=== PATIENT | female | born 1950 | race Caucasian/White ===

== ENCOUNTER → 2016-03-26 | Outpatient (CLI) | payer MEDICARE, BC ==
--- NOTE | 2016-03-26 08:59 | RAD ---
EXAM DESCRIPTION: Pelvis series. CLINICAL HISTORY: Right hip pain. COMPARISON: None. TECHNIQUE: One view was submitted for evaluation. FINDINGS: Mild degenerative change of the pubic symphysis. Mild degenerative change of the lower lumbar spine. No fracture, dislocation, or radiopaque foreign body is seen. Pelvic ring appears intact. Soft tissues are unremarkable. IMPRESSION: Symmetrical bilateral hip joint spaces with no evidence of subchondral sclerosis or osteophyte formation. Electronically signed by: Dawson Lees MD 03/26/2016 08:58
== END | disposition home or self-care (01) ==
LOC: RAD 07:54
PROVIDERS: ATTEND Orthopaedic Surgery
DX: M25.551 Pain in right hip (principal)

== ENCOUNTER → 2016-04-28 | Outpatient (CLI) | payer MEDICARE, BC | END | disposition home or self-care (01) | LOC: RESP 12:01 → LAB.O 12:01 | PROVIDERS: ATTEND Orthopaedic Surgery | DX: Z01.818 Encounter for other preprocedural examination (principal) ==

== ENCOUNTER → 2016-06-05 | Outpatient (CLI) | payer MEDICARE, BC | LOC: GMAJ 14:25 | PROVIDERS: ATTEND Family Medicine | DX: Z79.899 Other long term (current) drug therapy (principal) ==

== ENCOUNTER 2016-06-10 05:46 | Inpatient (IN) | payer MEDICARE, BC ==
--- NOTE | 2016-06-09 09:13 | HP ---
CHIEF COMPLAINT: Right knee pain. HISTORY OF PRESENT ILLNESS: Malorie is a 66-year-old female with a history of severe knee pain that has been getting progressively worse over several years. She is having feelings of the knee giving way as well. She denies any injury associated with the onset of this. She denies any radiation of pain. She has had injection. She walks with an assistive device and has used oral medication. Unfortunately, she has failed to get relief with his regimen. Because of her ongoing pain, she has requested operative intervention. After discussing the risks, benefits and alternatives to that, the patient has given informed consent. PAST SURGICAL HISTORY: 1. Tubal ligation. MEDICATIONS: 1. Amlodipine. 2. Carbamazepine. 3. Celebrex. ALLERGIES: NO KNOWN DRUG ALLERGIES. CODE STATUS: Full code. IMMUNIZATIONS: Up to date. SOCIAL HISTORY: The patient does not drink, smoke or use any illicit drugs. FAMILY HISTORY: None pertinent to today's complaint. REVIEW OF SYSTEMS: Negative except as indicated in the History of Present Illness. PHYSICAL EXAMINATION: VITAL SIGNS: Blood pressure 166/87. Pulse 70. Height 5'4". Weight 168. MENTAL STATUS: The patient is awake, alert, and is able to give a good history and participate in the physical. The patient is oriented to person, place and time. SKIN: Normal tone and turgor. HEENT: Normocephalic, atraumatic. Pupils equal, round and reactive. Mucosal membranes are moist. NECK: Normal range of motion. No thyromegaly, no lymphadenopathy. CHEST: Normal respiratory excursion. CARDIAC: Regular rate and rhythm. No murmurs, rubs or gallops. MUSCULOSKELETAL: The bilateral upper extremities show full active range of motion without pain. She has intact sensation. They are warm and well perfused. She has no crepitus with range of motion. There is no significant deformity. The left lower extremity shows good range of motion without significant pain. She has intact sensation and it is warm and well perfused. She has full extension. She has flexion to about 120 degrees. The right side shows pain and crepitus with range of motion. She has no significant varus/valgus or anterior/posterior laxity. She has mild effusion. Sensation is intact. It is warm and well perfused. She has no pain with range of motion of the hip. IMAGING: X-rays show severe arthritis with slight valgus deformity. ASSESSMENT: 1. Arthritis. PLAN: The plan at this point is for total knee arthroplasty. We have discussed the risks, benefits, and alternatives to that and the patient has given informed consent. #[id number] [facility]
[2016-06-10] MEDS ORDERED: SODIUM CHLORIDE 0.9% 250ML 250 ML ONE ×3 (05:54→19:36)
[2016-06-10] MEDS ORDERED: ceFAZolin SODIUM 1 GM VIAL ONE ×4 (05:54→19:36)
[2016-06-10] MEDS ORDERED: SODIUM CHL 0.9% 50ML MIN-BAG+ 50 ML IVPB ONE (05:54)
[2016-06-10] MEDS ORDERED: LACTATED RINGERS 1,000 ML ONE ×2 (05:54→06:22)
[2016-06-10] MEDS ORDERED: VANCOMYCIN HCL INJ 1,000 MG VIAL IVPB ONE ×4 (05:54→19:36)
[2016-06-10] MEDS ORDERED: TRANEXAMIC ACID 1,000 MG/10 ML VIAL ONE ×2 (05:55)
[2016-06-10] MEDS ORDERED: SODIUM CHLORIDE 0.9% 100ML 0 ML IVPB ONE (05:56)
[2016-06-10] MEDS ORDERED: SODIUM CHL 0.9% 100ML MINI-BAG 100 ML IVPB ONE (05:57)
[2016-06-10] MEDS ORDERED: MORPHINE SULF *EPIDURAL* 1 MG/ML VIAL ONE (06:22)
[2016-06-10] MEDS ORDERED: BUPIVACAINE 0.25% W/EPI 50 ML VIAL INJ ONE (06:29)
[2016-06-10] MEDS ORDERED: PROMETHAZINE HCL INJ 12.5 MG in SODIUM CHLORIDE 0.9% 50ML 50 ML IVPB PRN (07:03)
[2016-06-10] MEDS ORDERED: ACETAMINOPHEN 325 MG TAB PO PRN (07:03)
[2016-06-10] MEDS ORDERED: TRANEXAMIC ACID INJ 1,000 MG in SODIUM CHLORIDE 0.9% 100ML 100 ML IVPB ONE (07:03)
[2016-06-10] MEDS ORDERED: ALUMINUM & MAGNESIUM HYDROXIDE 30 ML UD PO PRN (07:03)
[2016-06-10] MEDS ORDERED: TEMAZEPAM 15 MG CAP PO PRN (07:03)
[2016-06-10] MEDS ORDERED: BISACODYL SUPPOSITORY 10 MG PR PRN (07:03)
[2016-06-10] MEDS ORDERED: NALOXONE HCL INJ 0.4 MG/ML VIAL IV PRN (07:03)
[2016-06-10] MEDS ORDERED: ACETAMINOPHEN 500 MG TAB PO PRN (07:03)
[2016-06-10] MEDS ORDERED: ONDANSETRON INJ 4 MG/2 ML VIAL IV PRN (07:03)
[2016-06-10] MEDS ORDERED: MORPHINE SULFATE INJ 10 MG/ML VIAL IM PRN (07:03)
[2016-06-10] MEDS ORDERED: PROMETHAZINE HCL INJ 25 MG in SODIUM CHLORIDE 0.9% 50ML 50 ML IVPB PRN (07:03)
[2016-06-10] MEDS ORDERED: MAGNESIUM HYDROXIDE 30 ML UD PO PRN (07:03)
[2016-06-10] MEDS ORDERED: ZOLPIDEM TARTRATE 5 MG TAB PO PRN (07:03)
[2016-06-10] MEDS ORDERED: SODIUM CHLORIDE 0.9% (FLUSH) 10 ML SYG IV PRN (07:03)
[2016-06-10] MEDS ORDERED: BENZOCAINE-MENTH LOZ (CEPACOL) 1 EA LOZ MT PRN (07:03)
[2016-06-10] MEDS ORDERED: CYCLOBENZAPRINE HCL 10 MG TAB PO PRN (07:03)
[2016-06-10] MEDS ORDERED: MORPHINE SULFATE INJ 10 MG/ML VIAL IV PRN (07:03)
[2016-06-10] MEDS ORDERED: MORPHINE PCA 1 MG/ML 100ML 1 BAG in PREMIX BAG 1 BAG IVPB SCH (07:30)
[2016-06-10] MEDS: IV SET AND CAP CHANGE INJ INJ SCH (07:35)
[2016-06-10] MEDS ORDERED: MORPHINE PCA 1 MG/ML 100 ML BAG IVPB ONE (09:05)
[2016-06-10] MEDS ORDERED: PROPOFOL 200 MG/20 ML VIAL IV ONE (12:00)
[2016-06-10] MEDS ORDERED: LIDOCAINE 1% 10 ML VIAL INJ ONE (12:00)
--- NOTE | 2016-06-10 15:01 | PN ---
DATE: 06/10/16 SUBJECTIVE: She is doing well. She has no pain at this point. OBJECTIVE: Afebrile. Vital signs stable. Dressing is clean, dry and intact. ASSESSMENT: Status post total knee arthroplasty. PLAN: The plan at this point is to continue with her CPM and begin weight- bearing as tolerated tomorrow. #[id number] [facility]
--- NOTE | 2016-06-10 15:04 | OP ---
DATE OF PROCEDURE: 06/10/16 PREOPERATIVE DIAGNOSIS: 1. Right knee arthritis. POSTOPERATIVE DIAGNOSIS: 1. Right knee arthritis. PROCEDURE: 1. Right total knee arthroplasty. SURGEON: Juan Luis Kaba MD. MEDIATION COMMISSIONER: Zane Harper CST, SA-C. ANESTHESIA: General. COMPLICATIONS: None. FINDINGS: Severe arthritis with valgus deformity. INDICATION: Ms. Butts has a history of pain that has been refractory to conservative measures. Because of the refractory nature of the pain, she has requested operative intervention. Because of the severity of her arthritis, the only operative intervention she is a candidate for is total knee arthroplasty. After discussing the risks, benefits and alternatives to that, the patient has given informed consent for total knee arthroplasty. PROCEDURE: The patient was brought to the Operating Room and placed in supine position. General anesthesia was induced and the patient's leg was sterilely prepped and draped. Following prepping and draping, the distal femur was exposed and using an intramedullary guide, the distal femoral cut was made. The appropriate sized cutting block was measured, pinned into place, and the anterior, posterior, and chamfer cuts were made. The ACL was transected and the tibia was subluxed. Both the medial and lateral menisci were removed. An intramedullary guide was used to make the proximal tibial cut. The appropriate sized base plate was placed and a trial polyethylene was placed. The trial femur was placed, the knee was reduced, and the knee was taken through a range of motion. The knee was stable in anterior, posterior, varus and valgus stress. The patella tracked anatomically without evidence of subluxation or dislocation. After trialing, the trial components were removed and the bony surfaces were thoroughly irrigated with saline. Following irrigation, the surfaces were dried and the final components were cemented into place. The excess cement was removed and the remaining cement was allowed to cure. The knee was again taken through a range of motion to confirm stability. The wound was then irrigated with saline and closure was performed using PDS to approximate the arthrotomy followed by closure of the subcutaneous tissues with a combination of running and interrupted Monocryl sutures. Sterile dressing was placed. The patient was awoken from anesthesia and taken to Recovery. POSTOPERATIVE INSTRUCTIONS: The patient will be weight-bearing as tolerated on postoperative day 1. #[id number] [facility]
--- NOTE | 2016-06-10 15:34 | CONS ---
DATE: 06-10-16 HISTORY OF PRESENT ILLNESS: This 66 year-old white female was admitted to the hospital for elective total right knee replacement surgery earlier this morning. She is now immediately postoperatively examined and is being set up and prepared for eventual rehabilitation as she recuperates postsurgical to the point where she is able to safely return home. The patient is currently fairly stable after having Astramorph for pain relief as well as also on a morphine LINOLEUM FLOOR LAYER pump. She is alert and awake and communicative. She has had a long history of at least 2 years of worsening knee pain and has failed outpatient therapy and is requiring surgical intervention to assist with symptom control. PAST MEDICAL HISTORY: 1 Hypertension. 2. Arthritic pain in her knees, especially the right. 3. Seizure disorder. 4. She has had decreasing memory recently also. PAST SURGICAL HISTORY: 1. Right total knee arthroplasty performed earlier today. 2. Appendectomy as a child. 3. Bilateral tubal ligation in the past. 4. Removal of a temporal lobe cyst a few years ago. She has had seizures even before this neurosurgical procedure had been performed. CURRENT MEDICATIONS: Please see nurses list for a list of verified home medications. ALLERGIES: NONE KNOWN. FAMILY HISTORY: Positive for congestive heart failure, diabetes, prostate as well as breast cancer in various members. 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 She has never smoked or drank alcoholic beverages. REVIEW OF SYSTEMS: GENERAL: No significant weight change, fever or chills. HEENT: No significant vision or hearing difficulties. LUNGS: Mild shortness of breath upon exertion. No significant sputum production or hemoptysis. CARDIOVASCULAR: No chest pains or palpitations evident. ABDOMEN: No nausea, vomiting, diarrhea or blood in the stools. : No burning upon urination. EXTREMITIES: Worsening pain, especially in the right knee for the last 2 years. A lot of this dates back to some injuries that she has had in the past with worsening pain and failing to respond to outpatient therapy. NEUROLOGICAL: She has had recurring seizures, most recently 2 to 3 days before. They are described as petit mal or absence seizures, probably originating close to the temporal region where her cystic lesion had been approached neurosurgically. She is on a couple of medications for this and is followed by Dr. Dumont, neurologist. PHYSICAL EXAMINATION: VITAL SIGNS: Afebrile, pulse 71, blood pressure 146/72, pulse oximetry is 98% on room air. Weight is 76.2 kilos. GENERAL: Alert, able to communicate. Her memory is somewhat poor on some subjects and the is present to assist in filling in those blanks. HEENT: She does have some dry skin with some slight erythema noted around the face, especially the cheeks which the states seems to be new and maybe a transient reaction to some of the medications received earlier at the time of surgery. NECK: Supple, no adenopathy. CHEST: Lungs are clear with no significant rhonchi. HEART: Tones are regular without any significant gallops. ABDOMEN: Soft with no organomegaly, masses or tenderness. EXTREMITIES: Right knee is in a variable contraction range of motion machine up to 90 degrees and tolerating it fairly well. No significant pedal edema. NEUROLOGIC: The patient is having some decreased memory on some occasions, otherwise history of seizures, most recently 2 to3 days ago. LABORATORY: White count is 5,600, hemoglobin 13.1, neutrophils 71%. Chemistry shows sodium 136, potassium 3.6, BUN 19, creatinine 0.63, glucose 110. MRSA surveillance nasal culture performed 06/09/16 is negative at 24 hours. X-RAYS: Postoperative x-ray shows good placement of the prosthesis in the right knee. ADMITTING DIAGNOSIS: 1. Immediate postoperative day #0 total right knee arthroplasty for advanced osteoarthritis, having failed outpatient therapy and requiring surgical intervention to assist with symptom control. 2. Hypertension. 3. History of chronic seizure disorder probably petit mal in nature. 4. 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 5. Decreased memory, possibly related to the underlying neurological condition versus early dementia state. 6. Recent history of constipation. PLAN: The patient is admitted to the hospital from surgery for rehabilitation to reach her maximum potential so she will be able to return home safely. This rehabilitation will be under the direction of the orthopedist and physical therapy departments. We will observe her closely for her blood pressure control. Continue with previously used seizure medications. Seizure precautions at the bedside. Continue to observe closely and will have close followup with Dr. Flood when clinically stable to the point of being able to be discharged home postoperatively. [facility][id number] [facility]
[2016-06-10] MEDS ORDERED: SODIUM CHLORIDE 0.9% 100ML 100 ML IVPB ONE ×2 (15:38→19:36)
--- NOTE | 2016-06-10 15:49 | RAD ---
EXAM DESCRIPTION: Knee,Right 2 or More Views CLINICAL HISTORY: TKA COMPARISON: November 01, 2009 IMPRESSION: 2 views of the right knee show recent postsurgical changes from total knee arthroplasty with cement fixation of the tibial and femoral components. Soft tissue emphysema from recent surgery is seen. No complicating features are identified. Electronically signed by: Mateus Vizcaino MD 06/10/2016 3:18 PM CDT
[2016-06-10] MEDS: DEX 5% W/NACL 0.45% 1000ML 1,000 ML IVS PRN (15:53)
[2016-06-10] MEDS ORDERED: ceFAZolin SODIUM 1 GM in SODIUM CHL 0.9% 50ML MIN-BAG+ 50 ML IVPB SCH (16:00)
[2016-06-10] MEDS: ceFAZolin SODIUM 2 GM in SODIUM CHLORIDE 0.9% 100ML 100 ML IVPB SCH (16:09)
[2016-06-10] MEDS: VANCOMYCIN HCL INJ 1,000 MG in SODIUM CHLORIDE 0.9% 250ML 250 ML IVPB SCH (17:55)
[2016-06-10] MEDS: MAGNESIUM OXIDE 400 MG TAB PO SCH (19:08)
[2016-06-10] MEDS ORDERED: OXcarbazepine 300 MG TAB PO ONE (19:35)
[2016-06-10] MEDS ORDERED: DOCUSATE CALCIUM 240 MG CAP ONE (19:36)
[2016-06-10] MEDS ORDERED: ENOXAPARIN SODIUM 30 MG/0.3 ML SYG SUBCU ONE (19:36)
[2016-06-10] MEDS ORDERED: levETIRAcetam 250 MG TAB ONE (19:36)
[2016-06-10] MEDS: levETIRAcetam 250 MG TAB PO SCH (20:37)
[2016-06-10] MEDS: DOCUSATE CALCIUM 240 MG CAP PO SCH (20:37)
[2016-06-10] MEDS: OXcarbazepine 300 MG TAB PO SCH (20:37)
[2016-06-10] MEDS: AZILSARTAN MEDOXOMIL 80 MG PO SCH (20:38)
[2016-06-10] MEDS: ENOXAPARIN SODIUM 30 MG/0.3 ML SYG SUBCU SCH (21:51)
[2016-06-11] MEDS: ceFAZolin SODIUM 2 GM in SODIUM CHLORIDE 0.9% 100ML 100 ML IVPB SCH ×2 (00:09→08:57)
[2016-06-11] MEDS: VANCOMYCIN HCL INJ 1,000 MG in SODIUM CHLORIDE 0.9% 250ML 250 ML IVPB SCH (06:26)
[2016-06-11] MEDS ORDERED: ceFAZolin SODIUM 1 GM VIAL ONE ×2 (07:58→09:00)
[2016-06-11] MEDS ORDERED: SODIUM CHLORIDE 0.9% 100ML 100 ML IVPB ONE ×2 (07:58→09:00)
[2016-06-11] MEDS: OXcarbazepine 300 MG TAB PO SCH ×2 (09:45→20:33)
[2016-06-11] MEDS: levETIRAcetam 250 MG TAB PO SCH ×2 (09:45→20:33)
[2016-06-11] MEDS: ENOXAPARIN SODIUM 30 MG/0.3 ML SYG SUBCU SCH ×2 (09:45→21:00)
[2016-06-11] MEDS: MAGNESIUM OXIDE 400 MG TAB PO SCH (09:49)
[2016-06-11] MEDS ORDERED: METOPROLOL SUCCINATE XL 50 MG TAB ONE (10:41)
[2016-06-11] MEDS: amLODIPine BESYLATE 5 MG TAB PO SCH (12:16)
[2016-06-11] MEDS ORDERED: ALUM & MAG HYDROX-SIMETHICONE 30 ML UD PO PRN (13:06)
--- NOTE | 2016-06-11 16:18 | PN ---
DATE: 06/11/16 SUPERVISING PHYSICIAN: Jean-Paul Tan M.D. SUBJECTIVE: The patient is sitting in the bedside chair. She says her pain is well controlled. She has had no nausea or vomiting. She did run a low-grade fever with a T max of 100.2. OBJECTIVE: VITAL SIGNS: T max 100.2, pulse 88, blood pressure 178/81, respirations 18, satting 94% on room air. I's and O's show a negative balance of 1115 with 810 in, 1925 out. GENERAL: The patient appears to be in no distress. She is comfortable and alert. CHEST: Lungs are clear to auscultation bilaterally. HEART: Regular rate and rhythm. ABDOMEN: Soft, non- tender. Positive bowel sounds. EXTREMITIES: Right knee has a surgical dressing in place. She is sitting in the bedside chair. There is no edema noted. Distally pulses are strong. Capillary refill is brisk. NEUROLOGIC: The patient is alert and oriented times three. LABORATORY: Postoperative H&H shows 11.4 and 33.4. ASSESSMENT: 1. Postoperative day 1 total right knee arthroplasty for advanced osteoarthritis having failed outpatient treatment therapy and requiring surgical intervention to assist with symptom control. 2. Hypertension. 3. History of chronic seizure disorder probably petit mal in nature. 4. History of benign temporal lobe cyst requiring drainage a number of years previously by neurosurgical services. 5. Decreased memory possibly related to underlying neurological condition versus early dementia state. 6. Recent history of constipation. PLAN: Will continue to follow the patient as she progresses through her physical therapy and rehabilitation efforts. Will anticipate discharge at the discretion of Physical Therapy as she meets her goals. Until then, continue to monitor the patient closely and treat appropriately. #[id number] [facility]
[2016-06-11] MEDS: DEX 5% W/NACL 0.45% 1000ML 1,000 ML IVS PRN (20:23)
[2016-06-11] MEDS: AZILSARTAN MEDOXOMIL 80 MG PO SCH (20:33)
[2016-06-11] MEDS: DOCUSATE CALCIUM 240 MG CAP PO SCH (20:33)
[2016-06-12] MEDS: HYDROcodone 5MG/APAP 325MG 1 EA TAB PO PRN ×3 (01:51→13:45)
--- NOTE | 2016-06-12 07:59 | PN ---
DATE: 06/11/16 SUBJECTIVE: She is doing well today. Her pain is well controlled. OBJECTIVE: Afebrile. Vital signs stable. Dressing is clean, dry and intact. ASSESSMENT: Status post total knee arthroplasty. PLAN: The plan at this point is to continue with her CPM and weight-bearing as tolerated. #[id number] [facility]
[2016-06-12] MEDS: levETIRAcetam 250 MG TAB PO SCH ×2 (09:50→20:42)
[2016-06-12] MEDS: MAGNESIUM OXIDE 400 MG TAB PO SCH (09:50)
[2016-06-12] MEDS: SODIUM CHLORIDE 0.9% (FLUSH) 10 ML SYG IV SCH ×2 (09:51→20:41)
[2016-06-12] MEDS: ENOXAPARIN SODIUM 30 MG/0.3 ML SYG SUBCU SCH ×2 (09:51→21:26)
[2016-06-12] MEDS: OXcarbazepine 300 MG TAB PO SCH ×2 (09:51→20:42)
[2016-06-12] MEDS: amLODIPine BESYLATE 5 MG TAB PO SCH (09:51)
--- NOTE | 2016-06-12 09:55 | PCM.CORE ---
Physician DVT/VTE - Prophylaxis Currently: Patient already on anticoagulation therapy - Nurse DVT Assessment & Total Each Risk Factor Represents 2 Points: Age 60-74, Major Surgery >45 minutes Each Risk Factor is 1 Point: Obesity (BMI >25) DVT Assessment Score: 5 - 5 or more Very High Risk Treatments: Early Ambulation *, Sequential Compression Device Pharmacological: Enoxaparin 30mg SQ BID
--- NOTE | 2016-06-12 19:16 | PN ---
DATE: 06/12/16 SUPERVISING PHYSICIAN: Jean-Paul Tan M.D. SUBJECTIVE: The patient is resting in bed currently using a CPM. She says her pain has been fairly well controlled. She did run a significant temperature last night with T max of 101.8. She again is encouraged to continue with deep breathing exercises to prevent any atelectasis and complications. She has had no nausea, vomiting or diarrhea. She reports her appetite is improving. OBJECTIVE: VITAL SIGNS: T max 101.8, pulse 75, blood pressure 165/67, respirations 18, O2 sat 98% on nasal cannula at rest. I's and O's show a positive balance of 3781 with 5206 in, 1425 out. Weight 76.2 kg. GENERAL: The patient appears to be comfortable utilizing CPM. She is alert. CHEST: Lungs are clear to auscultation but diminished towards the bases. HEART: Regular rate and rhythm. ABDOMEN: Soft, non-tender. Positive bowel sounds. EXTREMITIES: No clubbing, cyanosis or edema. Surgical dressing is in place overlying the right knee with no notable erythema. Minimal swelling. Pulses distally are strong with capillary refill brisk. NEUROLOGIC: She is alert and oriented times three. LABORATORY AND RADIOLOGY: There are no new findings to report. ASSESSMENT: 1. Postoperative day 2 total right knee arthroplasty for advanced osteoarthritis having failed outpatient treatment therapy requiring surgical intervention to assist with symptom control. 2. Low-grade fever likely secondary to pulmonary hygiene and possible early atelectasis with the patient being encouraged to utilize incentive spirometry and deep breathing exercises with no other signs of obvious infection. 3. Hypertension, stable. 4. History of chronic seizure disorder probably petit mal in nature. 5. History of benign temporal lobe cyst requiring drainage a number of years previously by neurosurgical services. 6. Decreased memory possibly related to underlying neurologic condition versus early dementia state. 7. Recent history of constipation. PLAN: Will again continue to follow the patient as she progresses through her physical therapy rehabilitation under the direction of orthopedic services, Dr. Kaba and Physical Therapy. I have again encouraged the patient to continue with breathing exercises and utilize her incentive spirometry, and reeducated in regards to atelectasis and complications, and possible origin of the ongoing fevers at night. She is also encouraged to flex and move her lower extremities while in bed to help with circulation. Will continue to monitor the patient and anticipate discharge at the discretion of Physical Therapy once the patient has met her set goals. Until then, will monitor and treat appropriately. #[id number] [facility]
[2016-06-12] MEDS: AZILSARTAN MEDOXOMIL 80 MG PO SCH (20:42)
[2016-06-12] MEDS: DOCUSATE CALCIUM 240 MG CAP PO SCH (20:42)
[2016-06-12] MEDS: CETIRIZINE HCL 10 MG TAB PO SCH (20:42)
[2016-06-12] MEDS ORDERED: CETIRIZINE HCL 10 MG TAB PO SCH (21:00)
[2016-06-12] MEDS ORDERED: NON-FORMULARY MEDICATION 1 EA MIS (Levocetirizine Dihydrochloride [Xyzal] 5 MG) PO SCH (21:00)
[2016-06-12] MEDS ORDERED: IBUPROFEN 400 MG TAB PO PRN (21:26)
[2016-06-13] MEDS: HYDROcodone 5MG/APAP 325MG 1 EA TAB PO PRN ×3 (07:15→21:35)
--- NOTE | 2016-06-13 08:03 | PN ---
DATE: 06/12/16 SUBJECTIVE: Ms. Butts is doing well today. Her pain is well controlled. OBJECTIVE: She us afebrile. Vital signs stable. Wound is clean, there are no signs or symptoms of infection. . ASSESSMENT: Status post total knee arthroplasty. PLAN: The plan is to continue on with weight-bearing as tolerated. We will continue with CPM. [facility][id number] [facility]
[2016-06-13] MEDS: levETIRAcetam 250 MG TAB PO SCH ×2 (08:51→21:04)
[2016-06-13] MEDS: amLODIPine BESYLATE 5 MG TAB PO SCH (08:52)
[2016-06-13] MEDS: ENOXAPARIN SODIUM 30 MG/0.3 ML SYG SUBCU SCH ×2 (08:52→21:17)
[2016-06-13] MEDS: OXcarbazepine 300 MG TAB PO SCH ×2 (08:52→21:04)
[2016-06-13] MEDS: SODIUM CHLORIDE 0.9% (FLUSH) 10 ML SYG IV SCH ×2 (08:52→21:05)
[2016-06-13] MEDS: IV SET AND CAP CHANGE INJ INJ SCH (08:52)
[2016-06-13] MEDS: MAGNESIUM OXIDE 400 MG TAB PO SCH (08:52)
[2016-06-13] MEDS ORDERED: MAGNESIUM HYDROXIDE 30 ML UD PO ONE (21:00)
[2016-06-13] MEDS ORDERED: BISACODYL SUPPOSITORY 10 MG PR ONE (21:00)
[2016-06-13] MEDS: AZILSARTAN MEDOXOMIL 80 MG PO SCH (21:03)
[2016-06-13] MEDS: CETIRIZINE HCL 10 MG TAB PO SCH (21:04)
[2016-06-13] MEDS: DOCUSATE CALCIUM 240 MG CAP PO SCH (21:04)
--- NOTE | 2016-06-13 21:53 | PN ---
DATE: 06/13/16 SUPERVISING PHYSICIAN: Quinn Flood M.D. SUBJECTIVE: The patient again is in bed with a CPM in place. She is doing well. She said her pain is well controlled. Fevers are lessened. She is once again continuing to do her deep breathing exercises. She has had no nausea, vomiting or diarrhea. OBJECTIVE: VITAL SIGNS: T max 100.6, pulse 96, blood pressure 178/64, respirations 20, satting 94% on nasal cannula at rest. I's and O's show a negative balance of 1510 with 840 in, 2350 out. Weight is 76.2 kg. CHEST: Lungs are clear to auscultation bilaterally. HEART: Regular rate and rhythm. ABDOMEN: Soft, non-tender. Positive bowel sounds. EXTREMITIES: Dressing remains in place over the right knee. There is no notable erythema. There is no swelling. Distally pulses are strong with capillary refill being brisk. NEUROLOGIC: She is alert and oriented times three. LABORATORY: Urinalysis just shows a trace of blood, otherwise within normal limits. ASSESSMENT: 1. Postoperative day 3 of total right knee arthroplasty for advanced osteoarthritis having failed outpatient treatment therapy requiring surgical intervention to assist with symptom control. 2. Low-grade fever although improving with no obvious signs of infection felt to be secondary to poor inspiratory effort and some mild atelectasis with the patient again encouraged to utilize her incentive spirometry and do deep breathing exercises. 3. Hypertension, stable. 4. History of chronic seizure disorder probably petit mal in nature. 5. History of benign temporal lobe cyst requiring drainage a number of years previous by neurosurgical services. 6. Decreased memory possibly related to underlying neurological condition versus early dementia state. 7. Recent history of constipation. PLAN: Will continue to follow the patient in her effort to rehab and continue with physical therapy under the direction of Dr. Kaba. Again, she is encouraged to continue with deep breathing exercises. Urinalysis today was completed which showed no evidence of infection in regards to urinary tract infection. She is again encouraged to move her lower extremities when able to. Anticipate discharge to Swing Bed in the morning and to ultimately have outpatient therapy at the point the patient is strong enough to be discharged. Until then, will continue to monitor the patient closely and treat appropriately. #[id number] [facility]
[2016-06-14 05:27] VITALS: O2SAT 94
[2016-06-14] MEDS: HYDROcodone 5MG/APAP 325MG 1 EA TAB PO PRN ×2 (05:45→11:20)
[2016-06-14] MEDS: ENOXAPARIN SODIUM 30 MG/0.3 ML SYG SUBCU SCH (09:06)
[2016-06-14] MEDS: amLODIPine BESYLATE 5 MG TAB PO SCH (09:07)
[2016-06-14] MEDS: OXcarbazepine 300 MG TAB PO SCH (09:07)
[2016-06-14] MEDS: levETIRAcetam 250 MG TAB PO SCH (09:07)
[2016-06-14] MEDS: MAGNESIUM OXIDE 400 MG TAB PO SCH (09:07)
[2016-06-14] MEDS: SODIUM CHLORIDE 0.9% (FLUSH) 10 ML SYG IV SCH (09:08)
[2016-06-14 11:56] VITALS: BP 147/72; TEMP 98.2
--- NOTE | 2016-06-14 12:41 | PN ---
DATE: 06/13/16 SUBJECTIVE: Ms. Butts subjectively is doing well and has been up walking. OBJECTIVE: She is afebrile. Vital signs are stable. Wound is clean. There are no signs or symptoms of infection. ASSESSMENT: 1. Status post total knee arthroplasty. PLAN: The plan at this point is for her to continue on with weightbearing as tolerated. She will be eligible for discharge tomorrow. #[id number] [facility]
--- NOTE | 2016-06-14 12:48 | PN ---
DATE: 06/14/16 SUBJECTIVE: Ms. Butts subjectively is doing well. She is now ready for discharge. OBJECTIVE: She is afebrile. Vital signs are stable. Wound is clean. There are no signs or symptoms of infection. ASSESSMENT: 1. Status post total knee arthroplasty. PLAN: The plan at this point is for discharge. She will begin outpatient physical therapy on Thursday. #[id number] [facility]
--- NOTE | 2016-06-16 11:40 | DS ---
SUPERVISING PHYSICIAN: Quinn Flood MD DISCHARGE DIAGNOSIS: 1. Postoperative day 4, total right knee arthroplasty for advanced osteoarthritis, having failed outpatient therapy and requiring surgical intervention to assist with symptom control. 2. Low grade fever through admission secondary to the patient's inspiratory effort, although showing improvement with utilization of incentive spirometry and deep breathing exercises. 3. History of hypertension, stable. 4. History of chronic seizure disorder, probably petit mal in nature. 5. History of a benign temporal lobe cyst requiring draining a number of years previously by neurosurgical services. 7. Decreased memory, possibly related to the underlying neurological condition versus early dementia. 8. Recent history of constipation. HISTORY OF PRESENT ILLNESS: Ms. Butts is a 66-year-old, female patient who was admitted to the hospital for elective total right knee replacement surgery on the morning of 06/10/16. The patient has had a long history of at least 2 years of worsening knee pain and had failed outpatient therapy and required surgical intervention to assist with symptom control. The patient was seen in immediate postoperative state in stable condition. LABORATORY: CBC initially was within normal limits. Hemoglobin 13.1, hematocrit 30.5. Postoperative hemoglobin 11.4 and hematocrit 33.4. Chemistries showed normal electrolytes with BUN 19, creatinine 0.63, calcium 9.6. Urinalysis showed just trace amount of blood, lysed, on dipstick. Otherwise, within normal limits. MICROBIOLOGY: MRSA surveillance nasal culture performed is negative at 24 hours. RADIOLOGY: No studies for review. HOSPITAL COURSE: Ms. Butts was admitted on 06/10/16 for elective right knee arthroplasty as noted in history of present illness. She was seen in immediate postoperative state and followed closely through her rehabilitation efforts. The patient did have some episodes of low grade fever and this was felt to be secondary to atelectasis from the patient not doing deep breathing exercises and she was encouraged to do her incentive particular. There were no signs of infection noted through her clinical progression. She was continued on DVT prophylaxis as per protocol for knee replacement. On the morning of discharge, 06/14/16, it was felt the patient had progressed well enough through her physical therapy efforts to continue in the outpatient setting at the [facility]. PLAN: The patient was discharged on 06/14/16 with instructions to followup with Dr. Kaba as scheduled in 2 weeks and to call Thursday to schedule followup appointment. She had physical therapy to continue through the [facility] and appointment to see physical therapy on Thursday at 9 o'clock. She was instructed to resume her home medications and to start new prescriptions as directed. Wound management was to consist of wound care as instructed by Dr. Kaba's wound management protocol. She was instructed to return to the hospital should she have any worsening or other concerning symptoms. At time of discharge, prescriptions included: 1. Flexeril 10 mg q.8h. as needed, #15. 2. Cochrane 5/325 1 to 2 q.4h. as needed, provided by Dr. Kaba. 3. Xarelto 10 mg daily, #7. At discharge, she was to resume usual diet as tolerated. Activity was as per physical therapy. Condition at discharge was stable. #[id number] [facility]
== END 2016-06-14 12:00 | disposition home or self-care (01) | DRG 470 ==
LOC: AMB 05:46 → MS 10:10
PROVIDERS: ADMIT Orthopaedic Surgery; ATTEND Nurse Practitioner Family
PROC: 0SRC0J9 Replacement of Right Knee Joint with Synthetic Substitute, Cemented, Open Approach (ICD-10-PCS; principal; 2016-06-10 07:00)
DX: M17.11 Unilateral primary osteoarthritis, right knee (principal); J98.11 Atelectasis; G40.409 Other generalized epilepsy and epileptic syndromes, not intractable, without status epilepticus; I10 Essential (primary) hypertension; R41.3 Other amnesia; Z79.899 Other long term (current) drug therapy; Z79.1 Long term (current) use of non-steroidal anti-inflammatories (NSAID)

== ENCOUNTER → 2016-09-11 | Outpatient (CLI) | payer MEDICARE, BC | LOC: GMAJ 14:59 | PROVIDERS: ATTEND Family Medicine | DX: Z79.899 Other long term (current) drug therapy (principal) ==

== ENCOUNTER → 2016-10-20 | Outpatient (CLI) | payer MEDICARE, BC | END | disposition home or self-care (01) | LOC: MAMMO 13:18 | PROVIDERS: ATTEND Family Medicine | DX: Z12.31 Encounter for screening mammogram for malignant neoplasm of breast (principal) | CPT/HCPCS: 77063; G0202 ==

== ENCOUNTER → 2016-11-04 | Outpatient (CLI) | payer MEDICARE, BC ==
--- NOTE | 2016-11-04 15:18 | US ---
EXAM DESCRIPTION: Breast,Leftl Ultrasound CLINICAL HISTORY: 66 yearsFemaleMASS FOUND IN LT BREAST YEARS AGO COMPARISON: Digital 3-D tomosynthesis left breast 10/20/2016. Left breast 2-D digital diagnostic mammography 05/02/2010. Left breast ultrasound 05/02/2010. TECHNIQUE: Transcutaneous scanning of the left breast utilizing two-dimensional and Doppler modes. Scanning performed by the artillery officer and Dr. Dunlap. FINDINGS: Scanning at the 1200 clock position of the left breast, 5 cm from the nipple. Heterogeneous hypoechoic solid mass with lobulated borders and mostly circumscribed but also indistinct borders. Dimensions 2.9 x 2.5 cm. Parallel orientation. Significant attenuation posteriorly. Minimally vascular. No other solid masses or cystic lesions. No parenchymal edema or large calcifications. IMPRESSION: 1. BI-RADS Category 4: SUSPICIOUS - Subcategory 4B: Moderate Suspicion For Malignancy. 2. Tissue diagnosis is recommended if there are no clinical contraindications. The findings and the follow-up plan were reviewed in person with the patient after the examination. Written communication explaining the IMPRESSION and follow-up, will be mailed to the patient and referring health care provider. CRITICAL COMMUNICATION: The critical value was discussed directly by phone with Dr. Ivan Flood at approximately 1445 hours, on November 04, 2016. Electronically signed by: Zane Dunlap MD 11/04/2016 3:16 PM CDT
== END | disposition home or self-care (01) ==
LOC: MAMMO 13:43
PROVIDERS: ATTEND Family Medicine
DX: R92.8 Other abnormal and inconclusive findings on diagnostic imaging of breast (principal)

== ENCOUNTER → 2016-11-12 | Outpatient (CLI) | payer MEDICARE, BC ==
--- NOTE | 2016-11-12 12:43 | US ---
EXAM DESCRIPTION: Biopsy/Needle Guidance: Ultrasound. CLINICAL HISTORY: 66 yearsFemaleABNORMAL MAMMO/LUMP LEFT BREAST COMPARISON: Diagnostic ultrasound of the left breast on 11/04/2016. 3-D tomosynthesis bilateral breasts 10/20/2016. TECHNIQUE: The procedure was performed by Dr. Chaney. Repeat ultrasound localized the lesion at 1200 clock position of the left breast. 5 cm from the nipple. Sterile preparation. Sterile ultrasound guidance. FINDINGS: Hypoechoic mass with lobulated borders and partially circumscribed and partially indistinct and obscured margins at the 1200 clock position of the left breast. Similar appearance to prior study. Parallel orientation but abnormal attenuating posterior features. Multiple orthogonal images demonstrate the echogenic core biopsy needle within the mass. Adequate specimens were obtained. IMPRESSION: Successful, ultrasound-guided fine-needle core biopsy of left breast mass. Pathology examination at remote facility, results pending. Electronically signed by: Zane Dunlap MD 11/12/2016 12:42 PM CDT
--- NOTE | 2016-11-12 13:51 | OP ---
DATE OF PROCEDURE: 11/12/16 PREOPERATIVE DIAGNOSIS: 1. Left breast mass. POSTOPERATIVE DIAGNOSIS: 1. Left breast mass. PROCEDURE: 1. Sonographically guided needle core biopsy, left breast mass. SURGEON: Seth Chaney MD. BALLISTICS EXPERT: None. ANESTHESIA: Local infiltration of 1% lidocaine. INDICATION: The patient I s a 66-year-old female with an upper, outer quadrant left breast mass which has increased in size since the last testing. It is solid in nature and somewhat irregular margins. She was brought to the Surgical Suite for a sonographically guided needle core biopsy after the risks, benefits and alternatives were discussed and accepted. FINDINGS: Three excellent cores were taken which were identified in the mass by the ultrasound device. PROCEDURE: The patient was placed in the supine position with the left shoulder elevated. The left breast was examined with the ultrasound device and the lesion was identified. The skin lateral to the ultrasound device was prepped with Betadine and then draped with towels. Local infiltration of anesthesia was obtained with 1% lidocaine and the 25 gauge needle was introduced up to abutting the wall of the lesion and then tissue between the lesion and the skin was infiltrated with local anesthesia. When this was done, the ultrasound biopsy device was introduced and three passes were made through the lesion. Excellent cores were taken. Hemostasis was obtained with pressure. A single suture was placed in the skin incision of 4-0 Prolene. Sterile pressure dressing was applied. The patient tolerated the procedure well. Estimated blood loss was less than 5 mL. The patient was discharged home in good condition. #[id number] [facility]
== END | disposition home or self-care (01) ==
LOC: US 15:53
PROVIDERS: ATTEND Surgery
PROC: 0HBU3ZX Excision of Left Breast, Percutaneous Approach, Diagnostic (ICD-10-PCS; principal; 2016-11-12)
DX: C50.212 Malignant neoplasm of upper-inner quadrant of left female breast (principal)

== ENCOUNTER → 2016-11-19 | Outpatient (CLI) | payer MEDICARE, BC ==
--- NOTE | 2016-11-20 00:58 | RAD ---
Examination: XR CHEST 2 VIEWS dated 11/19/2016 12:00 AM CDT History: CANCER LT BREAST Comparison: None Technique: Frontal and lateral views of the chest Findings: No suspicious pulmonary nodules or masses. No focal airspace consolidation. No pneumothorax or pleural effusion. The cardiomediastinal silhouette is within normal limits. No destructive osseous lesions are identified. Impression: No acute disease. Electronically signed by: Quinn Rizzo MD 11/20/2016 12:56 AM CDT
== END | disposition home or self-care (01) ==
LOC: LAB.O 10:04
PROVIDERS: ATTEND Surgery
DX: C50.812 Malignant neoplasm of overlapping sites of left female breast (principal)

== ENCOUNTER → 2016-11-20 | Outpatient (CLI) | payer MEDICARE, BC ==
--- NOTE | 2016-11-24 07:41 | NM ---
EXAM DESCRIPTION: Bone Scan, Whole Body CLINICAL HISTORY: 66 years Female, BREAST CA COMPARISON: None. TECHNIQUE: Patient received 28.9 mCi technetium 99m MDP intravenously. Delayed whole body images are obtained.. FINDINGS: There is mild increased activity in the upper and lower lumbar spine region with focal area of increased activity in the posterior right lower lumbar region. Focal increased activity in the left midfoot is noted. Photopenic defect from right knee arthroplasty is seen. IMPRESSION: There is increased activity in the lumbar spine likely represent disc and facet degenerative changes. Probable osteophytic changes with increased activity in the midfoot on the left. No convincing bone scan evidence of osteoblastic metastatic disease. Electronically signed by: Matues Vizcaino MD 11/24/2016 7:40 AM CDT
== END | disposition home or self-care (01) ==
LOC: NM 09:04
PROVIDERS: ATTEND Surgery
DX: C50.812 Malignant neoplasm of overlapping sites of left female breast (principal); M47.896 Other spondylosis, lumbar region

== ENCOUNTER 2016-12-08 05:58 | Inpatient (IN) | payer MEDICARE, BC ==
[2016-12-08] MEDS ORDERED: LIDOCAINE 2 % GEL 5 ML TUBE TOP ONE (07:21)
[2016-12-08] MEDS ORDERED: ROCURONIUM BROMIDE 10 MG/ML VIAL ONE (07:21)
[2016-12-08] MEDS ORDERED: fentaNYL CITRATE INJ 50 MCG/ML AMP ONE (07:21)
[2016-12-08] MEDS ORDERED: ceFAZolin SODIUM 1 GM VIAL ONE (07:32)
[2016-12-08] MEDS ORDERED: SODIUM CHL 0.9% 100ML MINI-BAG 100 ML IVPB ONE (07:32)
[2016-12-08] MEDS ORDERED: LACTATED RINGERS 1,000 ML ONE ×3 (07:32→11:22)
[2016-12-08] MEDS ORDERED: MORPHINE SULFATE INJ 10 MG/ML VIAL IV PRN (11:35)
[2016-12-08] MEDS ORDERED: ONDANSETRON INJ 4 MG/2 ML VIAL IV PRN (11:35)
[2016-12-08] MEDS ORDERED: PROPOFOL 200 MG/20 ML VIAL IV ONE (12:00)
--- NOTE | 2016-12-08 13:19 | OP ---
DATE OF PROCEDURE: 12/08/16 PREOPERATIVE DIAGNOSIS: 1. Carcinoma of the left breast. POSTOPERATIVE DIAGNOSIS: 1. Carcinoma of the left breast. PROCEDURE: 1. Left modified radical mastectomy. SURGEON: Seth Chaney MD. SUBSTITUTE TEACHER: None. ANESTHESIA: General anesthesia. INDICATION: The patient is a 66-year-old female who underwent needle biopsy of a left breast mass after a mammogram revealed an invasive carcinoma and metastatic workup was unremarkable. After the risks, benefits and alternatives to lumpectomy with radiation, mastectomy with or both of which with or without sentinel node biopsy and mastectomy with or without immediate reconstruction, the patient has elected modified radical mastectomy. She was brought today for the procedure under general anesthesia. FINDINGS: There was no indication that the mass had invaded the chest wall or the skin. There were obvious lymph nodes in the axilla and it is uncertain whether these are metastatic malignancy or just inflammation secondary to biopsy. No other pathology was identified. PROCEDURE: After adequate general anesthesia was obtained, the patient was prepped and draped in the usual sterile manner. Surgical time-out was taken. The patient had been given 2 grams of Ancef. An elliptical incision was then fashioned which contained both the biopsy site and the nipple-areolar complex, first with a marking pen and then the superior flap was taken first with a sharp knife then electrocautery. [place] clamps were placed on the skin edges the superior flap was taken to the sternal border medially, to the clavipectoral fascia superiorly and then to the edge of the axilla. A moist sponge was placed under the flap and then the inferior flap was taken in the same manner down to the rectus fascia. When this was done, the breast was dissected off the chest wall in the usual manner with a #10 blade and electrocautery. When this was done, the dissection began in the axilla. The superior margin was the axillary vein and the posterior margin was the thoracodorsal bundle and the long thoracic nerve of Ca. Dissection was completed. The specimen was passed from the field. The wound was then irrigated copiously with saline. Both nerves were identified and stimulated showing good muscle movement. At this point, two drains were placed under through the inferior flap, one in the chest wall, one in the axilla. They were sutured in place with 3-0 Nylon ligatures. The wound was closed with the subcutaneous tissues reapproximated with a running 3-0 Vicryl suture from both ends. The wound was then irrigated through the middle of the incision and aspirated through the drains. The skin edges were approximated with a skin stapler. The drains were placed to closed suction and grenade drainage. Sterile dressings were applied. Estimated blood loss was approximately 200 mL. All sponge, needle and instrument counts were correct. The patient tolerated the procedure well. #[id number] [facility]
--- NOTE | 2016-12-08 13:30 | HP ---
CHIEF COMPLAINT: Biopsy-proven carcinoma of the left breast. HISTORY OF PRESENT ILLNESS: The patient is a 66-year-old female who is admitted for elected left modified radical mastectomy after the alternatives were discussed at length with the patient and her . Her metastatic workup was negative. She was admitted today for the surgery. PAST MEDICAL HISTORY: 1. Hypertension. 2. Osteoarthritis. 3. Sleep apnea. 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 5. Petit mal seizure disorder. PAST SURGICAL HISTORY: 1. Appendectomy. 2. Right total knee arthroplasty. 3. Aspiration of cyst in the frontal lobe with BEHAVIOUR SUPPORT TEACHER shunt, which has been removed. CURRENT MEDICATIONS: 1. Fish oil. 2. Zyrtec. 3. Amlopidine. 4. Endarbi. 5. Xyzal. 6. Oxcarbazepine. 7. Levetiracetam. 8. Keppra. FAMILY HISTORY: Noncontributory for this. SOCIAL HISTORY: The patient is . She does not drink or smoke. REVIEW OF SYSTEMS: Noncontributory except for her neurologic difficulties and osteoarthritic changes. PHYSICAL EXAMINATION: GENERAL: The patient is awake, alert, cooperative, mildly anxious. HEENT: Sclerae nonicteric. Mucous membranes moist. NECK: Without adenopathy. BACK: Without CVA tenderness. CHEST: Equal breath sounds bilaterally. HEART: Regular rhythm. ABDOMEN: Soft, nontender. BREAST: Left breast shows a healing biopsy site in the upper outer quadrant of the left breast and the mass in the supraareolar area. No skin changes are noted. No obvious axillary lymph nodes are palpated. PELVIC/RECTAL: Deferred. EXTREMITIES: Without cyanosis, clubbing or edema. LABORATORY: Potassium 3.5, sodium 132, creatinine 0.55. Urinalysis was clear. Hemoglobin 13.6, white count 5.4, platelet count 284,000, differential normal. Chest x-ray reveals no obvious pulmonary nodules or acute inflammatory processes. EKG showed first degree AV block. ASSESSMENT: 1. Biopsy-proven carcinoma of the left breast. PLAN: Admission for left modified radical mastectomy. #[id number] [facility]
[2016-12-08] MEDS ORDERED: SODIUM CHLORIDE 0.9% (FLUSH) 10 ML SYG IV PRN (13:58)
[2016-12-08] MEDS ORDERED: IV SET AND CAP CHANGE INJ INJ SCH (14:00)
[2016-12-08] MEDS: KCL 20MEQ/D5 1/2NS 1,000 ML IVS PRN (16:34)
--- NOTE | 2016-12-08 17:03 | PCM.CORE ---
Physician DVT/VTE - Nurse DVT Assessment & Total Each Risk Factor Represents 2 Points: Age 60-74, Malignancy (present/past), Major Surgery >45 minutes Each Risk Factor is 1 Point: Obesity (BMI >25) DVT Assessment Score: 7 - 5 or more Very High Risk Treatments: Early Ambulation *, Sequential Compression Device Pharmacological: Enoxaparin 40mg SQ Daily
[2016-12-08] MEDS ORDERED: OXcarbazepine 300 MG TAB PO ONE (20:07)
[2016-12-08] MEDS ORDERED: levETIRAcetam 250 MG TAB ONE (20:07)
[2016-12-08] MEDS ORDERED: LEVETIRACETAM 1000 MG PO SCH (21:00)
[2016-12-08] MEDS ORDERED: OXCARBAZEPINE 600 MG PO SCH (21:00)
[2016-12-08] MEDS: AZILSARTAN MEDOXOMIL 80 MG PO SCH (21:09)
[2016-12-08] MEDS: NON-FORMULARY MEDICATION 1 EA MIS (Levocetirizine Dihydrochloride [Xyzal] 5 MG) PO SCH (21:10)
[2016-12-08] MEDS: ENOXAPARIN SODIUM 40 MG/0.4 ML SYG SUBCU SCH (21:10)
[2016-12-08] MEDS: HYDROcodone 5MG/APAP 325MG 1 EA TAB PO PRN (21:34)
--- NOTE | 2016-12-08 21:42 | CONS ---
DATE OF CONSULTATION: 12/08/16 SUPERVISING PHYSICIAN: Quinn Flood M.D. REASON FOR CONSULTATION: Status post mastectomy. History of seizures. HISTORY OF PRESENT ILLNESS: Ms. Butts is a 66 year-old female patient that was admitted to the hospital for a left modified radical mastectomy that was performed earlier today by Dr. Chaney. The patient has a history of biopsy-proven carcinoma of the left breast. She also has a past medical history that includes seizure disorders with petit mal seizures and currently on Keppra. The patient was seen in the immediate postoperative state and will be followed postoperatively until discharge. She was in stable condition and alert at time of admission. She notes that her last seizure activity was this morning prior to surgery. She currently is on Keppra for seizure control and is followed by Dr. Dumont. PAST MEDICAL HISTORY: 1. Hypertension. 2. Petit mal seizure disorder on Keppra. 3. 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 4. Obstructive sleep apnea. PAST SURGICAL HISTORY: 1. Appendectomy. 2. Right total knee arthroplasty. 3. Bilateral tubal ligation. 4. Removal of a frontal temporal lobe cyst with a CHILD NUTRITION MANAGER shunt which has since been removed. CURRENT MEDICATIONS: 1. Oxcarbazepine 600 mg twice daily. 2. Keppra 1,000 mg twice daily. 3. Xyzal 5 mg at bedtime. 4. Edarbi 80 mg at bedtime. 5. Amlodipine besylate 10 mg daily. 6. Fish oil 1200 mg daily. 7. Celebrex 200 mg daily. ALLERGIES: REGLAN. FAMILY HISTORY: Father has congestive heart failure, diabetes, prostate and breast cancers in various family members. 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 She has never smoked or drank alcoholic beverages. The patient is . REVIEW OF SYSTEMS: GENERAL: No significant weight loss, fever or chills. HEENT: No history of vision or hearing difficulties. LUNGS: No reported shortness of breath, cough or hemoptysis. CARDIOVASCULAR: No reported chest pains or palpitations. ABDOMEN: No nausea or vomiting, diarrhea or change in bowel habits. GENITOURINARY: No dysuria, hematuria or other urinary symptoms. NEUROLOGIC: History of recurrent seizures but most recently apparently being this morning prior to surgery. She describes them as petit mal or absence seizures probably originating from the cystic lesion that was removed surgically and is followed by Dr. Dumont, and is on [facility]. PHYSICAL EXAMINATION: VITAL SIGNS: Temperature 99.5, pulse 81, blood pressure 168/79, respirations 20 , satting 99% on 2 liters nasal cannula at rest. Weight is 74.2 kg. GENERAL: The patient is alert and oriented. Appears to be in no acute distress , resting with good pain control. HEENT: Tympanic membranes were clear bilaterally. Oropharynx was pink and moist without any lesions. NECK: Supple, non-tender with full range of motion. There is no jugular venous distention. CHEST: Lungs were clear although breath sounds were somewhat distant secondary to bandages in place with the chest wall covered with an Jaiden bandage postoperatively. HEART: Regular rate and rhythm with no appreciable murmurs, gallops, or rubs. ABDOMEN: Soft, non-tender with distant bowel sounds. EXTREMITIES: No clubbing, cyanosis or edema. NEUROLOGIC: She was alert and oriented times three. Facial features were symmetrical. Extraocular movements are within normal limits. There was no notable nystagmus. There was no detectable neuromotor deficits. LABORATORY: Preoperative CBC showed 5,400 white count with hemoglobin 13.6, hematocrit 39.5, platelet count 284,000. Chemistries showed sodium 132, potassium 3.5, CO2 was 26, BUN 13, creatinine 0.55, calcium 9.1. Urine just showed a trace of blood, otherwise within normal limits. EKG showed sinus rhythm with a first degree AV block with no ST changes or T- wave inversions. ASSESSMENT: 1. Status post left modified radical mastectomy being performed by Dr. Chaney, general surgeon for biopsy-proven carcinoma of the left breast. 2. History of petit mal seizure disorder on [facility] with last reported seizure activity per the patient was this morning prior to surgery. 3. Hypertension. 4. History of benign temporal frontal lobe cyst requiring drainage with CHILD NUTRITION MANAGER shunt which has been removed. 5. Mild electrolyte imbalance as noted on preoperative laboratory studies with a mild hyponatremia and hypokalemia. PLAN: The patient is admitted to the hospital for left modified radical mastectomy. Surgery was performed this morning by Dr. Chaney. The patient was seen in the immediate postoperative state. She will be followed closely and have close neurological monitoring as well as review of her medications and medical history. Will plan to follow the patient closely and defer surgical issues to Dr. Chaney. Will plan to repeat a BMP in the morning to further assess the patient's electrolyte status to maintain a normal electrolyte balance to lessen any chance of further seizure activity. Her home medications have been reviewed and updated as they will be resumed as previous to surgery. Will anticipate discharge at Dr. Chaney's discretion. Until then, will continue to follow the patient and monitor the patient closely neurologically. [facility][id number] [facility]
[2016-12-09] MEDS: KCL 20MEQ/D5 1/2NS 1,000 ML IVS PRN (02:50)
[2016-12-09] MEDS ORDERED: PANTOPRAZOLE SODIUM TAB 40 MG PO ONE (05:19)
[2016-12-09] MEDS: PANTOPRAZOLE SODIUM TAB 40 MG PO SCH (05:58)
[2016-12-09] MEDS: HYDROcodone 5MG/APAP 325MG 1 EA TAB PO PRN ×4 (05:58→19:07)
[2016-12-09] MEDS ORDERED: levETIRAcetam 250 MG TAB PO SCH (09:00)
[2016-12-09] MEDS: amLODIPine BESYLATE 5 MG TAB PO SCH (09:47)
[2016-12-09] MEDS: OXcarbazepine 300 MG TAB PO SCH ×2 (09:48→21:08)
[2016-12-09] MEDS: CELECOXIB 100 MG CAP PO SCH (09:57)
[2016-12-09] MEDS: FISH OIL 1,200 MG CAP PO SCH (09:57)
--- NOTE | 2016-12-09 14:40 | PN ---
SUPERVISING PHYSICIAN: Quinn Flood MD DATE: 12/09/16 SUBJECTIVE: The patient is sitting up in her bed. Her family is at the bedside. She has no complaints of shortness of breath, nausea, vomiting, diarrhea or constipation. No complaints of seizures. She did say she missed her neurology appointment with Dr. Dumont this past . She also had concerns about her discharge with home health. I assured that we would assist her in getting home health on discharge. OBJECTIVE: VITAL SIGNS: Afebrile. Heart rate 65. Blood pressure 163/79. Respiratory rate 18. O2 saturation 99% on 2 liters nasal cannula. LUNGS: Essentially clear to auscultation bilaterally. CHEST: There is a bandage to the left side of her chest with an Jaiden bandage that is dry and intact. CARDIAC: Regular rate and rhythm. ABDOMEN: Soft, nondistended, nontender. Bowel sounds are positive. EXTREMITIES: No cyanosis, clubbing or edema. NEUROLOGIC: Awake, alert and oriented times three. LABORATORY: WBC normal at 6.3, hemoglobin 13.3, hematocrit 39.5. Chemistries are basically within normal limits with the exception of glucose slightly high at 118 and serum osmolality slightly low at 272.9, although improved from yesterday at 264.6. All other labs and films have been reviewed via the EMR. ASSESSMENT: 1. Status post left modified radical mastectomy being performed by Dr. Chaney, general surgeon, for biopsy-proven carcinoma of the left breast, postoperative day 1. 2. History of petit mal seizure disorder on [facility] with last reported seizure activity per the patient the morning prior to surgery. 3. Hypertension. 4. History of benign temporal frontal lobe cyst requiring drainage with TERRAZZO POLISHER HELPER shunt which has been removed. 5. Mild electrolyte imbalance as noted on preoperative laboratory studies, now resolved. PLAN: We will continue present supportive care. I have consulted social work nurse for discharge planning and home health referral. I have encouraged her to follow up with Dr. Dumont after discharge. Will continue her on her present seizure medicine. Her surgical issues will be per Dr. Chaney. We will discharge at Dr. Chaney's discretion. Encourage good pulmonary hygiene. We will continue to monitor the patient closely and follow as needed. Dr. Flood is the collaborating physician and available for consultation. #[id number] [facility]
[2016-12-09] MEDS: SODIUM CHLORIDE 0.9% (FLUSH) 10 ML SYG IV SCH (21:00)
[2016-12-09] MEDS: LEVETIRACETAM 1000 MG PO SCH (21:08)
[2016-12-09] MEDS: NON-FORMULARY MEDICATION 1 EA MIS (Levocetirizine Dihydrochloride [Xyzal] 5 MG) PO SCH (21:09)
[2016-12-09] MEDS: AZILSARTAN MEDOXOMIL 80 MG PO SCH (21:10)
[2016-12-09] MEDS: ENOXAPARIN SODIUM 40 MG/0.4 ML SYG SUBCU SCH (21:11)
[2016-12-10] MEDS: PANTOPRAZOLE SODIUM TAB 40 MG PO SCH (06:17)
[2016-12-10] MEDS: HYDROcodone 5MG/APAP 325MG 1 EA TAB PO PRN (09:13)
[2016-12-10] MEDS: amLODIPine BESYLATE 5 MG TAB PO SCH (09:14)
[2016-12-10] MEDS: CELECOXIB 100 MG CAP PO SCH (09:14)
[2016-12-10] MEDS: FISH OIL 1,200 MG CAP PO SCH (09:14)
[2016-12-10] MEDS: OXcarbazepine 300 MG TAB PO SCH (09:14)
[2016-12-10] MEDS: LEVETIRACETAM 1000 MG PO SCH (09:15)
[2016-12-10] MEDS: SODIUM CHLORIDE 0.9% (FLUSH) 10 ML SYG IV SCH (09:31)
[2016-12-10] MEDS ORDERED: cloNIDine HCL 0.1 MG TAB PO ONE (10:45)
--- NOTE | 2016-12-10 14:18 | DS ---
SUPERVISING PHYSICIAN: Quinn Flood MD DISCHARGE DIAGNOSIS: 1. Status post left modified radical mastectomy, performed by Dr. Chaney, general surgeon, for biopsy-proven carcinoma of the left breast, postoperative day 2. 2. History of petit mal seizure disorder on Keppra. 3. Hypertension. 4. History of benign temporal frontal lobe cyst requiring drainage with [employer] shunt, which has been removed. 5. Mild electrolyte imbalance as noted on preoperative laboratory studies, now resolved. HISTORY OF PRESENT ILLNESS: This is is a 66 year-old female patient that was admitted to the hospital for an elective left modified radical mastectomy after the alternatives were discussed at with the patient and her by Dr. Chaney , general surgeon. Her metastatic workup was negative. On the day of admission , she was admitted for her surgery. She went through her operative procedure without any complications. HOSPITAL COURSE: After being admitted to the Floor, her pain was well controlled with narcotic medications. Her diet was advanced. Dr. Chaney did her dressing change this morning. The incision with renetta across the left chest was without redness or edema. Her two NICHELLE drains were draining minimal serosanguineous fluid. The patient had no complaints of nausea, vomiting, diarrhea, constipation, chest pain or shortness of breath. Dr. Chaney gave her postoperative instructions for her activity and she has chosen [facility] to help her upon discharge. DISCHARGE PLAN: The patient will be discharged home in stable condition. Her activity is to be per Dr. Chaney's instructions. She has a followup appointment with him on Thursday, December 15. He has also given her a prescription for hydrocodone. [facility] will admit her to their services for her wound care. She is to followup with Dr. Chaney or return to the hospital for any problems or complications. DISCHARGE MEDICATIONS: 1. Oxcarbazepine. 2. Xyzal. 3. Fish oil. 4. Celebrex. 5. Edarbi. 6. Amlodipine. 7. Keppra. 8. Hydrocodone. Dr. Flood is the collaborating physician and available for consultation. #[id number] [facility]
[2016-12-10 15:11] VITALS: BP 152/82; TEMP 98.7; O2SAT 95
== END 2016-12-10 15:12 | disposition home health service (06) | DRG 582 ==
LOC: AMB 05:58 → MS 12:50
PROVIDERS: ADMIT Surgery; ATTEND Nurse Practitioner Acute Care
PROC: 0HTU0ZZ Resection of Left Breast, Open Approach (ICD-10-PCS; principal; 2016-12-08 08:39)
DX: C50.412 Malignant neoplasm of upper-outer quadrant of left female breast (principal); G40.802 Other epilepsy, not intractable, without status epilepticus; I10 Essential (primary) hypertension; M19.90 Unspecified osteoarthritis, unspecified site; G47.30 Sleep apnea, unspecified; G93.0 Cerebral cysts; F02.80 Dementia in other diseases classified elsewhere, unspecified severity, without behavioral disturbance, psychotic disturbance, mood disturbance, and anxiety; E87.8 Other disorders of electrolyte and fluid balance, not elsewhere classified; Z96.651 Presence of right artificial knee joint; Z79.899 Other long term (current) drug therapy

== ENCOUNTER → 2017-02-12 | Outpatient (CLI) | payer MEDICARE, BC | END | disposition home or self-care (01) | LOC: GMAJ 17:12 | PROVIDERS: ATTEND Family Medicine | DX: Z79.899 Other long term (current) drug therapy (principal) ==

== ENCOUNTER → 2017-06-22 | Outpatient (CLI) | payer MEDICARE, BC | LOC: GMAJ 11:11 | PROVIDERS: ATTEND Family Medicine | DX: I10 Essential (primary) hypertension (principal) ==

== ENCOUNTER → 2017-11-02 | Outpatient (CLI) | payer MEDICARE, BC | LOC: GMAJS 10:36 | PROVIDERS: ATTEND Physician Assistant | DX: R30.0 Dysuria (principal) ==

== ENCOUNTER → 2017-12-02 | Outpatient (CLI) | payer MEDICARE, BC ==
--- NOTE | 2017-12-03 21:05 | MAM ---
EXAM DESCRIPTION: 3D Screening BILATERAL : Digital Mammography. CLINICAL HISTORY: 67 years Female SCREEN . 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 Left mastectomy.. Lifetime risk of developing breast cancer (Tyrer-Cuzick model)(%): Not calculated due to personal history of left breast cancer. COMPARISON: Bilateral screening digital breast tomosynthesis 10/20/2016. TECHNIQUE: Right CC and MLO projection full-field images, Digital tomosynthesis mammographic technique. Bilateral digital 2-D full-field MLO images. CAD not utilized. FINDINGS: Right breast parenchymal density pattern is: Scattered areas of fibroglandular density. No skin thickening or nipple retraction. Scattered solitary microcalcifications. Right axillary lymph nodes. No new focal, stellate mass or density, focal asymmetry , and no suspicious microcalcifications right Stable mammograms compared to prior study. IMPRESSION: Benign exam. BIRAD CATEGORY: 2 BENIGN FINDINGS. RECOMMENDATIONS: FOLLOW UP: Routine digital right breast screening, one year interval from November 2017. Written communication explaining the IMPRESSION and follow-up, will be mailed to the patient and referring health care provider. According to the [employer], yearly mammograms are recommended starting at age 40 and continuing as long as a woman is in good health. Any breast change noted on a breast self-exam should be reported promptly to the patient's healthcare provider. Breast MRI is recommended for women with an approximately 20-25% or greater lifetime risk of breast cancer, including women with a strong family history of breast or ovarian cancer and women who have been treated for Hodgkin's disease. A negative mammographic report should not delay tissue diagnosis in patients with significant clinical history or physical findings. Extremely dense breast tissue limits the sensitivity of digital mammography. Electronically signed by: Zane Dunlap MD 12/03/2017 9:04 PM CDT
== END ==
LOC: MAMMO 11:54
PROVIDERS: ATTEND Family Medicine
DX: Z12.31 Encounter for screening mammogram for malignant neoplasm of breast (principal)

== ENCOUNTER → 2017-12-03 | Outpatient (CLI) | payer MEDICARE, BC | LOC: LAB.O 10:32 | PROVIDERS: ATTEND Surgery | DX: C50.812 Malignant neoplasm of overlapping sites of left female breast (principal) ==

== ENCOUNTER → 2018-02-10 | Outpatient (CLI) | payer MEDICARE, BC | LOC: GMAJ 10:33 | PROVIDERS: ATTEND Family Medicine | DX: R56.9 Unspecified convulsions (principal) ==

== ENCOUNTER 2018-04-09 21:39 | Emergency (ER) | payer MEDICARE, BC ==
[2018-04-09 22:08] VITALS: O2SAT 94
[2018-04-09] MEDS ORDERED: ORPHENADRINE CITRATE 30 MG/ML AMP IV ONE (22:17)
--- NOTE | 2018-04-09 22:18 | ED.PDOC ---
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 stated hit his head on the wall this am but no LOC Timing/Duration: 1-3 hours Severity: moderate Improving Factors: other - took medication Worsening Factors: nothing Associated Symptoms: other - see hpi Allergies/Adverse Reactions: Allergies Metoprolol Adverse Reaction (Verified 04/09/18 21:59) decreases heart rate too low Home Medications: Ambulatory Orders Oxcarbazepine 600 mg PO BID 07/20/14 Levocetirizine Dihydrochloride [Xyzal] 5 mg PO BEDTIME 10/27/15 [place]-3 Fatty Acids [Fish Oil] 1,200 mg PO DAILY 10/27/15 Azilsartan Medoxomil [Edarbi] 80 mg PO BEDTIME 06/09/16 Celecoxib [Celebrex] 200 mg PO DAILY 06/09/16 Amlodipine Besylate 10 mg PO DAILY 06/10/16 Levetiracetam [Keppra] 1,000 mg PO BID 12/04/16 HYDROcodone 5MG/APAP 325MG [[place] 5/325] 1 - 2 ea PO Q4H PRN tab 12/10/16 Review of Systems - Review of Systems Constitutional: States: no symptoms reported EENTM: States: no symptoms reported Respiratory: States: no symptoms reported Cardiology: States: see HPI Gastrointestinal/Abdominal: States: no symptoms reported Genitourinary: States: no symptoms reported Musculoskeletal: States: see HPI, neck pain Skin: States: no symptoms reported Neurological: States: no symptoms reported Endocrine: States: no symptoms reported Past Medical History (General) - Patient Medical History Hx Seizures: Yes - simple partial seizures Hx Stroke: Yes Hx Dementia: No Hx Asthma: No Hx of COPD: No Hx Cardiac Disorders: No Hx Congestive Heart Failure: No Hx Pacemaker: No Hx Hypertension: Yes Hx Thyroid Disease: No Hx Diabetes: No Hx Gastroesophageal Reflux: No Hx Renal Disease: No Hx Cancer: Yes - breast, left Hx of HIV: No Hx Hepatitis C: No Hx MRSA: No Surgical History: other - left mastectomy - Vaccination History Hx Tetanus, Diphtheria Vaccination: Yes Hx Influenza Vaccination: No Hx Pneumococcal Vaccination: No - Social History Hx Tobacco Use: No Hx Chewing Tobacco Use: No Hx Alcohol Use: No Hx Substance Use: No Hx Substance Use Treatment: No Hx Depression: No Hx Physical Abuse: No Hx Emotional Abuse: No Hx Suspected Abuse: No - Activities of Daily Living Grooming Ability: Standby Assistance Eating (Feeding) Ability: Standby Assistance Toileting Ability: Minimum Assistance - Female History Patient : No Family Medical History - Family History Father Living Status: Age at (years of age): 73 Hx Family Asthma: No Hx Family Congestive Heart Failure: Yes Hx Family Hypertension: Yes Hx Family Stroke: No Hx Cardiac Disease: No Hx Family Diabetes: Yes - brother Hx Family Cancer: Yes Age of Onset (years of age): pro Physical Exam - Physical Exam General Appearance: Alert, Comfortable, No apparent distress Eye Exam: bilateral normal Ears, Nose, Throat: hearing grossly normal, normal ENT inspection, normal pharynx Neck: full range of motion, normal inspection, tender lateral - left Respiratory: lungs clear, normal breath sounds, no respiratory distress Cardiovascular/Chest: normal peripheral pulses, regular rate, rhythm, no murmur Peripheral Pulses: radial,right: 2+, radial,left: 2+ Gastrointestinal/Abdominal: non tender, soft Back Exam: no CVA tenderness, no vertebral tenderness Extremity: no pedal edema, no calf tenderness Neurologic: alert, oriented x 3, motor weakness - left side-residual from cva Skin Exam: normal color, warm/dry Progress - Progress Progress: 04/09/18 23:16 Vital Signs - 8 hr 04/09/18 22:01 Temperature 97.7 F Pulse Rate [ 65 left] Respiratory 18 Rate Blood Pressure 190/82 [Right Arm] O2 Sat by Pulse 94 L Oximetry - Results/Orders Results/Orders: 04/09/18 22:17 IV Care:Saline Lock per Protoc QSHIFT Laboratory Results - last 24 hr 04/09/18 04/09/18 04/09/18 22:16 22:16 22:38 WBC 5.9 RBC 3.97 L Hgb 12.2 Hct 36.2 MCV 91.1 MCH 30.7 MCHC 33.7 RDW 13.4 Plt Count 271 MPV 7.4 Absolute Neuts (auto) 4.20 Absolute Lymphs (auto) 1.00 Absolute Monos (auto) 0.50 Absolute Eos (auto) 0.10 Absolute Basos (auto) 0.00 Neutrophils % 70.7 Lymphocytes % 17.3 L Monocytes % 9.0 Eosinophils % 2.3 Basophils % 0.7 Sodium 129 L Potassium 3.7 Chloride 94 L Carbon Dioxide 27 Anion Gap 11.7 L BUN 18 Creatinine 0.60 BUN/Creatinine Ratio 30.0 H Random Glucose 98 Serum Osmolality 260.8 L Calcium 8.7 Total Bilirubin 0.4 AST 17 ALT 17 Alkaline Phosphatase 91 Creatine Kinase 69 CK-MB (CK-2) 2.0 CK-MB (CK-2) % Not Reportable Troponin I < 0.02 Serum Total Protein 6.3 L Albumin 3.9 Globulin 2.4 Albumin/Globulin Ratio 1.6 Discuss chest results with patient - EKG/XRAY/CT CT Ordered: Yes - c- spine neural foraminal narrowing no acute changes Departure - Departure Clinical Impression: Neck pain, CVA, old, hemiparesis, Hyponatremia High blood pressure Qualifiers: Hypertension type: unspecified Qualified Code(s): I10 - Essential (primary) hypertension Contusion of head Qualifiers: Encounter type: initial encounter Contusion of head detail: scalp Qualified Code(s): S00.03XA - Contusion of scalp, initial encounter Time of Disposition: 23:24 Disposition: Discharge to Home or Self Care Condition: Fair Departure Forms: ED Discharge - Pt. Copy, Patient Portal Self Enrollment Instructions: DI for High Blood Pressure, DASH Diet Referrals: Quinn Flood MD [Primary Care Provider] - 1-2 Weeks Home Medications: Ambulatory Orders Oxcarbazepine 600 mg PO BID 07/20/14 Levocetirizine Dihydrochloride [Xyzal] 5 mg PO BEDTIME 10/27/15 [place]-3 Fatty Acids [Fish Oil] 1,200 mg PO DAILY 10/27/15 Azilsartan Medoxomil [Edarbi] 80 mg PO BEDTIME 06/09/16 Celecoxib [Celebrex] 200 mg PO DAILY 06/09/16 Amlodipine Besylate 10 mg PO DAILY 06/10/16 Levetiracetam [Keppra] 1,000 mg PO BID 12/04/16 HYDROcodone 5MG/APAP 325MG [[place] 5/325] 1 - 2 ea PO Q4H PRN tab 12/10/16 Additional Instructions: Continue with all home medications ;return to Emergency room as needed if symptoms worsens
--- NOTE | 2018-04-09 23:10 | CT ---
EXAM: CT cervical spine without contrast. INDICATION: Trauma. Neck pain. TECHNIQUE: Contiguous axial CT images of the cervical spine. Intravenous contrast: Absent. Reformats: MPRs created and utilized. DLP 467 mGy-cm. This exam was performed according to our departmental dose-optimization program, which includes automated exposure control, adjustment of the mA and/or kV according to patient size and/or use of iterative reconstruction technique. COMPARISON: None. FINDINGS: Alignment: Mild grade 1 anterolisthesis at C4-C5. Fracture: No acute fracture or subluxation. Odontoid process: Intact. Prevertebral soft tissues: No edema. Spondylosis: There is disc space narrowing with endplate sclerosis at C6-C7. There is multilevel facet arthropathy. There is moderate to severe right-sided neural foraminal narrowing at C3-C4 and moderate to severe left-sided neural foraminal narrowing at C4-C5. Other: None. IMPRESSION: 1. No CT evidence of acute osseous injury of the cervical spine. Electronically signed by: Sebastian Wright MD 04/09/2018 11:06 PM [facility] Workstation: [id number]
[2018-04-09 23:54] VITALS: BP 123/53; TEMP 98.7
== END 2018-04-09 23:40 | disposition home or self-care (01) ==
LOC: ER 21:39
DX: M54.2 Cervicalgia (principal); I10 Essential (primary) hypertension; S00.03XA Contusion of scalp, initial encounter; E87.1 Hypo-osmolality and hyponatremia; I69.354 Hemiplegia and hemiparesis following cerebral infarction affecting left non-dominant side; R56.9 Unspecified convulsions; W22.09XA Striking against other stationary object, initial encounter; Z85.3 Personal history of malignant neoplasm of breast; Z79.899 Other long term (current) drug therapy; Z88.8 Allergy status to other drugs, medicaments and biological substances; Y92.9 Unspecified place or not applicable
CPT/HCPCS: 36415; 72125; 80053; 82550; 82553; 84484; 85025; J2360

== ENCOUNTER 2018-09-26 09:41 | Emergency (ER) | payer MEDICARE, BC ==
--- NOTE | 2018-09-26 10:27 | ED.PDOC ---
History of Present Illness - General Chief Complaint: Syncope/Near Syncope Stated Complaint: LOC Time Seen by Provider: 09/26/18 10:24 Source: patient, family Exam Limitations: no limitations - History of Present Illness Initial Comments: patient comes in today with altered LOC this morning possible seizure. Patient has a long history of having partial, petit mall seizures, there were thought to be secondary to a cerebral cyst that had been drained. Patient states she hasn't had a seizure in months and normally they're very small things where she does not fully lose consciousness but becomes altered for a couple seconds and recovered fairly quickly. This morning she was sitting watching TV and woke up realized she was not herself and has spilled her coffee. She had no tonic- clonic movements, loss of bowel or bladder, and although she was a little confused she became oriented over the next several minutes. Patient states intake about half an hour for her to feel back to baseline. Patient also had a stroke back in February resulting in left-sided weakness that has subsequently improved but remains a problem. Patient denies having any precipitating symptoms such as chest pain, shortness of breath, nausea, vomiting, cough, fever, chills, or cough or cold symptoms. Patient has a past medical history of uncontrolled hypertension, seizure disorder, and CVA Timing/Prior Episodes: remote history Precipitating Factors: none Loss of Consciousness: brief (seconds) Current Symptoms: back to normal Allergies/Adverse Reactions: Allergies Metoprolol Adverse Reaction (Verified 09/26/18 10:05) Other decreases heart rate too low Home Medications: Ambulatory Orders Oxcarbazepine 600 mg PO BID 07/20/14 Levocetirizine Dihydrochloride [Xyzal] 5 mg PO BEDTIME 10/27/15 [place]-3 Fatty Acids [Fish Oil] 1,200 mg PO DAILY 10/27/15 Azilsartan Medoxomil [Edarbi] 80 mg PO BEDTIME 06/09/16 Celecoxib [Celebrex] 200 mg PO DAILY 06/09/16 Amlodipine Besylate 10 mg PO DAILY 06/10/16 Levetiracetam [Keppra] 1,000 mg PO BID 12/04/16 HYDROcodone 5MG/APAP 325MG [[place] 5/325] 1 - 2 ea PO Q4H PRN tab 12/10/16 Review of Systems - Review of Systems Constitutional: States: no symptoms reported. Denies: chills, fever, malaise EENTM: States: no symptoms reported. Denies: blurred vision, double vision, ear discharge, nose congestion Respiratory: States: no symptoms reported. Denies: cough, short of breath, wheezing Cardiology: States: no symptoms reported. Denies: chest pain, palpitations Gastrointestinal/Abdominal: States: no symptoms reported. Denies: abdominal pain, constipation, diarrhea, nausea, vomiting Genitourinary: States: no symptoms reported Musculoskeletal: States: no symptoms reported Neurological: States: see HPI Past Medical History (General) - Patient Medical History Hx Seizures: Yes - Focal Hx Stroke: Yes - 02/2018 w/[employer] Hx Dementia: No Hx Asthma: No Hx of COPD: No Hx Cardiac Disorders: No Hx Congestive Heart Failure: No Hx Pacemaker: No Hx Hypertension: Yes Hx Thyroid Disease: No Hx Diabetes: No Hx Gastroesophageal Reflux: No Hx Renal Disease: No Hx Cancer: Yes - L breast Hx of HIV: No Hx Hepatitis C: No Hx MRSA: No Surgical History: appendectomy, other - Vaccination History Hx Tetanus, Diphtheria Vaccination: Yes Hx Influenza Vaccination: Yes - 2017 Hx Pneumococcal Vaccination: Yes - Social History Hx Tobacco Use: No Hx Chewing Tobacco Use: No Hx Alcohol Use: No Hx Substance Use: No Hx Substance Use Treatment: No Hx Depression: No Hx Physical Abuse: No Hx Emotional Abuse: No Hx Suspected Abuse: No - Female History Patient : No Physical Exam - Physical Exam General Appearance: Alert, Comfortable, No apparent distress Eyes, Ears, Nose, Throat Exam: PERRL/EOMI, normal ENT inspection, TMs normal, pharynx normal Neck: non-tender, full range of motion, supple, normal inspection Cardiovascular/Respiratory: regular rate, rhythm, no M/R/G, normal peripheral pulses, no JVD, normal breath sounds, no respiratory distress Gastrointestinal/Abdominal: normal bowel sounds, non tender, soft, no organomegaly, no pulsatile mass Back Exam: normal inspection Extremity: normal range of motion, non-tender Mental Status: alert, oriented x 3 rn liaison Exam: normal hearing, normal speech, PERRL Motor/Sensory: no sensory deficit, no pronator drift, weak motor strength LUE - chronic from CVA 02/27 pre pt at baseline, weak motor strength LLE - chronic from CVA per pt at baseline DTR: 2+: Biceps, left, Biceps, right, Patellar, left, Patellar, right Skin Exam: normal color Progress - EKG/XRAY/CT EKG: Jose Ramon, Sinus, no ST T wave changes Comments: 1st degree AV block Departure - Departure Clinical Impression: Syncopal seizure Disposition: Discharge to Home or Self Care Condition: Good Departure Forms: ED Discharge - Pt. Copy, Patient Portal Self Enrollment Referrals: Quinn Flood MD [Primary Care Provider] - 1-2 Weeks Home Medications: Ambulatory Orders Oxcarbazepine 600 mg PO BID 07/20/14 Levocetirizine Dihydrochloride [Xyzal] 5 mg PO BEDTIME 10/27/15 [place]-3 Fatty Acids [Fish Oil] 1,200 mg PO DAILY 10/27/15 Azilsartan Medoxomil [Edarbi] 80 mg PO BEDTIME 06/09/16 Celecoxib [Celebrex] 200 mg PO DAILY 06/09/16 Amlodipine Besylate 10 mg PO DAILY 06/10/16 Levetiracetam [Keppra] 1,000 mg PO BID 12/04/16 HYDROcodone 5MG/APAP 325MG [[place] 5/325] 1 - 2 ea PO Q4H PRN tab 12/10/16 Additional Instructions: follow up with PCP in 2-3 days, return to ER for syncope, altered LOC, chest pain
--- NOTE | 2018-09-26 10:56 | CT ---
EXAM: CT Head Without Intravenous Contrast CLINICAL HISTORY: syncope, hx of stroke and cerebral cyst TECHNIQUE: Axial computed tomography images of the head/brain without intravenous contrast. Sagittal and coronal reformatted images were created and reviewed. This CT exam was performed using one or more of the following dose reduction techniques: automated exposure control, adjustment of the mA and/or kV according to patient size, and/or use of iterative reconstruction technique. COMPARISON: 07/19/2014. FINDINGS: Limitations: None. Brain: Old lacunar infarct right basal ganglia. There is age related cortical atrophy and periventricular white matter hypodensity most consistent with chronic small ischemic change. No acute infarct, hemorrhage or mass. Ventricles: Unremarkable. No ventriculomegaly. Bones/joints: Unremarkable. No acute fracture. Soft tissues: Unremarkable. Sinuses: Unremarkable as visualized. No acute sinusitis. Mastoid air cells: Unremarkable as visualized. No mastoid effusion. IMPRESSION: No acute findings. Electronically signed by: Isabel Spencer MD 09/26/2018 10:55 AM CDT
[2018-09-26 11:49] VITALS: BP 163/83; TEMP 98; O2SAT 96
== END 2018-09-26 11:52 | disposition home or self-care (01) ==
LOC: ER 09:41
DX: R55 Syncope and collapse (principal); G40.909 Epilepsy, unspecified, not intractable, without status epilepticus; R00.1 Bradycardia, unspecified; I44.0 Atrioventricular block, first degree; I10 Essential (primary) hypertension; I69.354 Hemiplegia and hemiparesis following cerebral infarction affecting left non-dominant side; Z85.3 Personal history of malignant neoplasm of breast; Z79.899 Other long term (current) drug therapy

== ENCOUNTER → 2018-12-13 | Outpatient (CLI) | payer MEDICARE, BC ==
--- NOTE | 2018-12-16 09:31 | MAM ---
EXAM DESCRIPTION: 3D Screening BILATERAL : Digital Mammography. CLINICAL HISTORY: 68 years Female ANNUAL SCREENING . Personal history left breast cancer 2017. Mother and remote family history of breast cancer.. Lifetime risk of developing breast cancer (Tyrer-Cuzick model)(%): Calculated due to personal history of breast cancer. COMPARISON: Right breast screening digital tomosynthesis 02 December 2017 and bilateral screening digital tomosynthesis 10/20/2016. Ultrasound-guided right breast core biopsy 12 November 2016 TECHNIQUE: Right CC and MLO projection full-field images, digital tomosynthesis mammographic technique. Right digital 2-D full-field MLO images. CAD not available for tomosynthesis or 2-D images. FINDINGS: Right breast parenchymal density pattern is: Scattered areas of fibroglandular density. No skin thickening or nipple retraction. Axillary lymph nodes. Solitary microcalcifications. Vascular calcifications. Stable focal asymmetry 6:00 to 6:30, mid breast. Stable intramammary lymph node upper breast. No new focal, stellate mass or density, focal asymmetry , and no suspicious microcalcifications right breast. Stable mammograms compared to prior study. IMPRESSION: Benign exam. BIRAD CATEGORY: 2 BENIGN FINDINGS. RECOMMENDATIONS: FOLLOW UP: Routine digital bilateral mammographic screening, one year interval from December 2018. Written communication explaining the IMPRESSION and follow-up, will be mailed to the patient and referring health care provider. The FINDINGS and the FOLLOW-UP plan were reviewed in person with the patient after the examination. According to the [employer], yearly mammograms are recommended starting at age 40 and continuing as long as a woman is in good health. Any breast change noted on a breast self-exam should be reported promptly to the patient's healthcare provider. Breast MRI is recommended for women with an approximately 20-25% or greater lifetime risk of breast cancer, including women with a strong family history of breast or ovarian cancer and women who have been treated for Hodgkin's disease. A negative mammographic report should not delay tissue diagnosis in patients with significant clinical history or physical findings. Extremely dense breast tissue limits the sensitivity of digital mammography. Electronically signed by: Zane Dunlap MD 12/16/2018 8:34 AM OBSTETRICS/GYNECOLOGY NURSE
== END ==
LOC: MAMMO 11:30
PROVIDERS: ATTEND Family Medicine
DX: Z12.31 Encounter for screening mammogram for malignant neoplasm of breast (principal)

== ENCOUNTER 2019-04-23 | Emergency (ER) | payer MEDICARE, BC | END 2019-04-23 12:24 | disposition home or self-care (01) | DX: R00.1 Bradycardia, unspecified (principal); R55 Syncope and collapse; I44.0 Atrioventricular block, first degree; K21.9 Gastro-esophageal reflux disease without esophagitis; I10 Essential (primary) hypertension; R56.9 Unspecified convulsions; I51.9 Heart disease, unspecified; Z79.899 Other long term (current) drug therapy; Z88.8 Allergy status to other drugs, medicaments and biological substances ==

== ENCOUNTER → 2019-06-03 | Outpatient (CLI) | payer MEDICARE, BC | LOC: LAB.O 10:51 | PROVIDERS: ATTEND Psychiatry & Neurology Neurology | DX: R53.83 Other fatigue (principal); Z79.899 Other long term (current) drug therapy ==

== ENCOUNTER → 2019-08-29 | Outpatient (CLI) | payer MEDICARE, BC ==
--- NOTE | 2019-08-29 11:40 | CT ---
TECHNIQUE: Spiral CT examination of the neck performed. Multiplanar reformats performed. Intravenous contrast was utilized. This exam was performed according to our departmental dose-optimization program, which includes automated exposure control, adjustment of the mA and/or kV according to patient size and/or use of iterative reconstruction technique. CLINICAL HISTORY PROVIDED: CHRONIC PHARYNGITIS COMPARISON: None available. FINDINGS: Nasal Cavity: Unremarkable. Paranasal Sinuses: Unremarkable. Nasopharynx: Unremarkable. Oropharynx: Unremarkable. Oral Cavity: Unremarkable. Hypopharynx: Unremarkable. Larynx: Unremarkable. Trachea: Unremarkable. Thyroid: Unremarkable. Parotid Glands: Unremarkable. Submandibular Glands: Unremarkable. Carotids / Internal Jugular Veins: Scattered atherosclerotic plaque. Skull Base: Unremarkable. Visible Brain and Orbits: Unremarkable. Lymph Nodes: Unremarkable. Soft Tissue Mass / Abscess: None present. Incidental Findings: None of significance. IMPRESSION: Unremarkable CT neck. Electronically signed by: Denton Maldonado MD 08/29/2019 11:38 AM CDT
== END ==
LOC: CT 09:31
PROVIDERS: ATTEND Family Medicine
DX: J31.2 Chronic pharyngitis (principal)

== ENCOUNTER 2019-11-09 12:13 | Emergency (ER) | payer MEDICARE, BC ==
[2019-11-09] MEDS ORDERED: LIDOCAINE 1% 10 ML VIAL INJ ONE (12:14)
[2019-11-09] MEDS ORDERED: LIDOCAINE 1% W/ EPINEPHRINE 20 ML VIAL INJ ONE (12:15)
--- NOTE | 2019-11-09 12:44 | ED.PDOC ---
History of Present Illness - General Chief Complaint: Laceration Time Seen by Provider: 11/09/19 12:42 Source: patient, RN notes reviewed, EMS Additional Information: 69 -year-old male, with history of hypertension history of a stroke that left her with some left-sided weakness, at [facility], when she was in the bathroom when she stood up she caught her elbow with a metal napkion dispenser causing a small cut onto the lateral aspect of the left elbow patient was bleeding Profusely from the laceration, per EMS, patient is up-to-date her tetanus did not hit her head and blood thinners - History of Present Illness Occurred: just prior to arrival Severity: mild Pain Location: upper extremity Improving Factors: nothing Worsening Factors: nothing Loss of Consciousness: no loss of consciousness Associated Symptoms (Fall): denies symptoms Allergies/Adverse Reactions: Allergies Metoprolol Adverse Reaction (Verified 09/26/18 10:05) Other decreases heart rate too low Home Medications: Ambulatory Orders Oxcarbazepine 600 mg PO BID 07/20/14 Levocetirizine Dihydrochloride [Xyzal] 5 mg PO BEDTIME 10/27/15 [place]-3 Fatty Acids [Fish Oil] 1,200 mg PO DAILY 10/27/15 Azilsartan Medoxomil [Edarbi] 80 mg PO BEDTIME 06/09/16 Celecoxib [Celebrex] 200 mg PO DAILY 06/09/16 Amlodipine Besylate 10 mg PO DAILY 06/10/16 Levetiracetam [Keppra] 1,000 mg PO BID 12/04/16 HYDROcodone 5MG/APAP 325MG [[place] 5/325] 1 - 2 ea PO Q4H PRN tab 12/10/16 Review of Systems - Review of Systems Constitutional: States: no symptoms reported EENTM: States: no symptoms reported Respiratory: States: no symptoms reported Cardiology: States: no symptoms reported Gastrointestinal/Abdominal: States: no symptoms reported Genitourinary: States: no symptoms reported Musculoskeletal: States: no symptoms reported Skin: States: no symptoms reported Neurological: States: no symptoms reported Endocrine: States: no symptoms reported Hematologic/Lymphatic: States: no symptoms reported Past Medical History (General) - Patient Medical History Hx Seizures: Yes Hx Stroke: No Hx Dementia: No Hx Asthma: No Hx of COPD: No Hx Cardiac Disorders: Yes Hx Congestive Heart Failure: No Hx Pacemaker: No Hx Hypertension: Yes Hx Thyroid Disease: No Hx Diabetes: No Hx Gastroesophageal Reflux: Yes Hx Renal Disease: No Hx Cancer: No Hx of HIV: No Hx Hepatitis C: No Hx MRSA: No - Vaccination History Hx Tetanus, Diphtheria Vaccination: Yes Hx Influenza Vaccination: Yes Hx Pneumococcal Vaccination: Yes - Social History Hx Tobacco Use: No Hx Chewing Tobacco Use: No Hx Alcohol Use: No Hx Substance Use: No Hx Substance Use Treatment: No Hx Depression: No Hx Physical Abuse: No Hx Emotional Abuse: No Hx Suspected Abuse: No - Female History Patient : No Family Medical History - Family History Father Family History: No Known Living Status: Age at (years of age): 71 Hx Family Asthma: No Hx Family Congestive Heart Failure: Yes Hx Family Hypertension: Yes Hx Family Stroke: No Hx Cardiac Disease: No Hx Family Diabetes: Yes - brother Hx Family Cancer: Yes Age of Onset (years of age): pro Physical Exam - Physical Exam General Appearance: Alert, Well Developed, Well Groomed, Well Hydrated, Well Nourished Head Injury: no evidence of injury Eye Exam: bilateral normal ENT Exam: hearing grossly normal, no evidence of ENT injury, no dental injury Neck Exam: non-tender, full range of motion, normal alignment, normal inspection Cardiovascular/Respiratory: regular rate, rhythm, no M/R/G, normal peripheral pulses, no JVD, normal breath sounds, no respiratory distress Gastrointestinal/Abdominal: normal bowel sounds, non tender, soft, no organomegaly, no pulsatile mass Back Exam: normal inspection, no CVA tenderness, no vertebral tenderness Extremity Exam: other - 3 cm laceration lateral aspect of the left elbow 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 nml as tested, no motor/sensory deficits, alert, normal mood/affect, oriented x 3 - [place] Coma Score Best Eye Response (Zina): (4) open spontaneously Best Verbal Response (Zina): (5) oriented Best Motor Response ([place]): (6) obeys commands Progress - Progress Progress: Was repaired without any complication, the laceration was cleaned there was no evidence of foreign body there is no evidence of joint exposure or bone exposure, and the bleeding was controlled without any difficulty 11/09/19 12:47 Procedures - Laceration/Wound Repair Left Elbow Wound's Depth, Shape: superficial, linear Wound Explored: clean Betadine Prep?: No Anesthesia: Lidocaine w/ Epi Volume Anesthetic (cc's): 5 Wound Debrided: minimal Wound Repaired With: sutures Suture Size/Type: 4:0 Number of Sutures: 3 Departure - Departure Clinical Impression: Laceration Disposition: Discharge to Home or Self Care Condition: Fair Departure Forms: ED Discharge - Pt. Copy, Patient Portal Self Enrollment Instructions: DI for Laceration Repair, Laceration Repair, Wound Care (DC) Diet: resume usual diet Referrals: Quinn Flood MD [Primary Care Provider] - 1-2 Weeks Home Medications: Ambulatory Orders Oxcarbazepine 600 mg PO BID 07/20/14 Levocetirizine Dihydrochloride [Xyzal] 5 mg PO BEDTIME 10/27/15 [place]-3 Fatty Acids [Fish Oil] 1,200 mg PO DAILY 10/27/15 Azilsartan Medoxomil [Edarbi] 80 mg PO BEDTIME 06/09/16 Celecoxib [Celebrex] 200 mg PO DAILY 06/09/16 Amlodipine Besylate 10 mg PO DAILY 06/10/16 Levetiracetam [Keppra] 1,000 mg PO BID 12/04/16 HYDROcodone 5MG/APAP 325MG [[place] 5/325] 1 - 2 ea PO Q4H PRN tab 12/10/16 Additional Instructions: return in 10 days for suture removal
[2019-11-09] MEDS ORDERED: NEOMYCIN-BACITRACIN-POLYMYXIN 0.9 GM UD TOP ONE (12:53)
[2019-11-09 13:47] VITALS: BP 176/92; TEMP 97.4; O2SAT 94
== END 2019-11-09 13:25 | disposition home or self-care (01) ==
LOC: ER 12:13
DX: S51.012A Laceration without foreign body of left elbow, initial encounter (principal); I69.352 Hemiplegia and hemiparesis following cerebral infarction affecting left dominant side; R56.9 Unspecified convulsions; I51.9 Heart disease, unspecified; I10 Essential (primary) hypertension; K21.9 Gastro-esophageal reflux disease without esophagitis; W22.09XA Striking against other stationary object, initial encounter; Y92.512 Supermarket, store or market as the place of occurrence of the external cause; Z79.899 Other long term (current) drug therapy; Z88.8 Allergy status to other drugs, medicaments and biological substances

== ENCOUNTER 2019-12-01 21:34 | Emergency (ER) | payer MEDICARE, BC ==
[2019-12-01] MEDS ORDERED: KETOROLAC TROMETHAMINE INJ 30 MG/ML VIAL IM ONE (21:50)
[2019-12-01 21:59] VITALS: TEMP 99.9
[2019-12-01 22:43] VITALS: O2SAT 94
--- NOTE | 2019-12-01 22:51 | RAD ---
EXAM DESCRIPTION: XR Chest,1 View CLINICAL HISTORY: left lateral chest pain at site of fall 1 week ago TECHNIQUE: Single frontal view of the chest is submitted. COMPARISON: 04/23/2019 FINDINGS: Heart: The cardiothoracic silhouette is enlarged, stable. Lungs: No focal consolidation. Mediastinum: Thoracic aortic atherosclerosis. Pleura: No appreciable effusion. No pneumothorax. Bones: Intact Upper abdomen: Unremarkable IMPRESSION: No acute injury. Electronically signed by: Dipika Anderson MD 12/01/2019 10:49 PM CDT
[2019-12-01] MEDS ORDERED: AZITHROMYCIN 250 MG TAB PO ONE (22:55)
--- NOTE | 2019-12-01 22:57 | ED.PDOC ---
History of Present Illness - General Chief Complaint: General Stated Complaint: left sided pain, fall 1 week ago Time Seen by Provider: 12/01/19 21:39 Source: patient Exam Limitations: no limitations - History of Present Illness Initial Comments: The patient is a 69-year-old female presented emergency room secondary to a flareup of the pain to the left side of the rib cage that has been present for the last week since she had a fall in the bathroom stall [place]. The patient was seen here in the emergency room initially for that fall. No evidence of any significant fractures were found. The patient had been doing well today until she made a wrong move and then the pain started shooting back. The pain kept worsening throughout the evening so the patient presented to the emergency room. No hypoxia no real shortness of breath. No syncope. No chest pain otherwise. She is tender to palpation over approximately the lateral aspect of T7-T8 on the left. No crepitus. No visible bruising. Pain is largely reproducible with palpation. On auscultation there are some very mild underlying Rales heard. The patient has been reluctant to take deep breaths s econdary to discomfort. Timing/Duration: other Severity: moderate Improving Factors: immobilization Worsening Factors: movement Associated Symptoms: chest pain Allergies/Adverse Reactions: Allergies Metoprolol Adverse Reaction (Verified 09/26/18 10:05) Other decreases heart rate too low Home Medications: Ambulatory Orders [place]-3 Fatty Acids [Fish Oil] 1,200 mg PO DAILY 10/27/15 Clonidine HCl 0.1 mg PO BID 11/09/19 Clopidogrel Bisulfate [Plavix] 75 mg PO DAILY 11/09/19 Hydralazine HCl [Hydralazine Hydrochloride] 50 mg PO TID 11/09/19 Amlodipine Besylate 10 mg PO DAILY 12/01/19 Anastrozole [Arimidex] 1 mg PO DAILY 12/01/19 Aspirin [Aspirin 81 Low Dose] 81 mg PO DAILY 12/01/19 Atorvastatin Calcium 40 mg PO DAILY 12/01/19 Azithromycin 500 mg PO DAILY #2 tab 12/01/19 Celecoxib 200 mg PO DAILY 12/01/19 Clonidine [Ulouplpe-Ddv-1] 0.1 mg TD DAILY 12/01/19 Escitalopram [Lexapro] 10 mg PO DAILY 12/01/19 Levetiracetam [Keppra] 1,000 mg PO BID 12/01/19 Oxcarbazepine 600 mg PO 12/01/19 Oxcarbazepine 600 mg PO DAILY 12/01/19 Review of Systems - Review of Systems Constitutional: States: no symptoms reported EENTM: States: no symptoms reported Respiratory: States: no symptoms reported Cardiology: States: chest pain Gastrointestinal/Abdominal: States: no symptoms reported Genitourinary: States: no symptoms reported Musculoskeletal: States: no symptoms reported Skin: States: no symptoms reported Neurological: States: no symptoms reported Endocrine: States: no symptoms reported All other Systems: No Change from Baseline Past Medical History (General) - Patient Medical History Hx Seizures: Yes Hx Stroke: Yes Hx Dementia: No Hx Asthma: No Hx of COPD: No Hx Cardiac Disorders: No Hx Congestive Heart Failure: No Hx Pacemaker: No Hx Hypertension: Yes Hx Thyroid Disease: No Hx Diabetes: No Hx Gastroesophageal Reflux: No Hx Renal Disease: No Hx Cancer: Yes - Left Breast Hx of HIV: No Hx Hepatitis C: No Hx MRSA: No Surgical History: appendectomy - Vaccination History Hx Tetanus, Diphtheria Vaccination: No Hx Influenza Vaccination: No Hx Pneumococcal Vaccination: No Immunizations Up to Date: No - Social History Hx Tobacco Use: No Hx Chewing Tobacco Use: No Hx Alcohol Use: No Hx Substance Use: No Hx Substance Use Treatment: No Hx Depression: No Feels Threatened In Home Enviroment: No Feels Threatened In a Relationship: No Hx Physical Abuse: No Hx Emotional Abuse: No Hx Suspected Abuse: No - Female History Patient is a Female of Child Bearing Age (10 -59 yrs old): No Patient : No - Triage Comment ED Triage Comment: The patient was alert and oriented and was assisted into a wheelchair due to the pain in her left ribs while she was trying to walk. She was holding her left ribs while trying to sit or stand and rated her pain a 9 upon movement. She had no noted shortness of breath and denied chest pain and nausea. She advised that she did have to take shollow breaths to keep the pain down in her ribs. She had no other noted complaints at the time of assesment. Family Medical History - Family History Father Family History: No Known Living Status: Age at (years of age): 71 Hx Family Asthma: No Hx Family Congestive Heart Failure: Yes Hx Family Hypertension: Yes Hx Family Stroke: No Hx Cardiac Disease: No Hx Family Diabetes: Yes - brother Hx Family Cancer: Yes Age of Onset (years of age): pro Physical Exam - Physical Exam General Appearance: Alert, Other - Uncomfortable Eye Exam: bilateral normal Ears, Nose, Throat: hearing grossly normal, normal pharynx Neck: full range of motion, supple Respiratory: no respiratory distress, no accessory muscle use, other - Very mild rales to the left lung base. Tenderness to palpation as above. 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 The patient likely simply twisted and mildly reinjured it today. 2 view chest x-ray shows no obvious rib or lung pathology. She does have very fine rales underlying the area so the patient is receiving a dose of azithromycin here in another 2 days as an outpatient. She does need to take big deep breaths and make himself cough in order to prevent fluid accumulation in the area. She can continue to take her Tylenol for pain control but I would also recommend that she take 2 Aleve twice daily for the next couple of days at least to help reduce discomfort. Topical heat may also prove beneficial. Obviously if the patient is worsening in any way then a repeat evaluation may be warranted. ER warnings are given. mik ybarra [phone] - Results/Orders Results/Orders: 2 view chest x-ray shows no acute pathology. Departure - Departure Clinical Impression: Contusion of rib on left side Qualifiers: Encounter type: initial encounter Qualified Code(s): S20.212A - Contusion of left front wall of thorax, initial encounter Disposition: Discharge to Home or Self Care Condition: Fair Departure Forms: ED Discharge - Pt. Copy, Patient Portal Self Enrollment Instructions: Bruised Rib Diet: regular diet Activity: increase activity as tolerated Referrals: Quinn Flood MD [Primary Care Provider] - 1-2 Weeks Prescriptions: Azithromycin 500 mg PO DAILY #2 tab Home Medications: Ambulatory Orders [place]irth-3 Fatty Acids [Fish Oil] 1,200 mg PO DAILY 10/27/15 Clonidine HCl 0.1 mg PO BID 11/09/19 Clopidogrel Bisulfate [Plavix] 75 mg PO DAILY 11/09/19 Hydralazine HCl [Hydralazine Hydrochloride] 50 mg PO TID 11/09/19 Amlodipine Besylate 10 mg PO DAILY 12/01/19 Anastrozole [Arimidex] 1 mg PO DAILY 12/01/19 Aspirin [Aspirin 81 Low Dose] 81 mg PO DAILY 12/01/19 Atorvastatin Calcium 40 mg PO DAILY 12/01/19 Azithromycin 500 mg PO DAILY #2 tab 12/01/19 Celecoxib 200 mg PO DAILY 12/01/19 Clonidine [Nqdwzepm-Nxp-1] 0.1 mg TD DAILY 12/01/19 Escitalopram [Lexapro] 10 mg PO DAILY 12/01/19 Levetiracetam [Keppra] 1,000 mg PO BID 12/01/19 Oxcarbazepine 600 mg PO 12/01/19 Oxcarbazepine 600 mg PO DAILY 12/01/19 Additional Instructions: The patient is a 69-year-old female presented to the emergency room secondary to an exacerbation of her left lateral rib pain that was started a week ago after a fall. The patient likely simply twisted and mildly reinjured it today. 2 view chest x-ray shows no obvious rib or lung pathology. She does have very fine rales underlying the area so the patient is receiving a dose of azithromycin here in another 2 days as an outpatient. She does need to take big deep breaths and make himself cough in order to prevent fluid accumulation in the area. She can continue to take her Tylenol for pain control but I would also recommend that she take 2 Aleve twice daily for the next couple of days at least to help reduce discomfort. Topical heat may also prove beneficial. Obviously if the patient is worsening in any way then a repeat evaluation may be warranted. ER warnings are given.
[2019-12-01 23:10] VITALS: BP 158/70
== END 2019-12-01 23:09 | disposition home or self-care (01) ==
LOC: ER 21:34
DX: S20.212A Contusion of left front wall of thorax, initial encounter (principal); I10 Essential (primary) hypertension; Z85.3 Personal history of malignant neoplasm of breast; Z86.73 Personal history of transient ischemic attack (TIA), and cerebral infarction without residual deficits; Z79.02 Long term (current) use of antithrombotics/antiplatelets; Z79.82 Long term (current) use of aspirin; Z79.899 Other long term (current) drug therapy; W19.XXXA Unspecified fall, initial encounter; Y92.512 Supermarket, store or market as the place of occurrence of the external cause
CPT/HCPCS: 71045; J1885; Q0144

== ENCOUNTER → 2020-02-24 | Outpatient (CLI) | payer MEDICARE, BC ==
--- NOTE | 2020-02-25 14:38 | CT ---
EXAMS DESCRIPTION: CT CHEST WITH CONTRAST CT ABDOMEN AND PELVIS WITHOUT AND WITH CONTRAST CLINICAL HISTORY: PANCYTOPENIA COMPARISON: Previous chest x-ray December 01, 2019, TECHNIQUE: CT of the abdomen and pelvis are performed prior to and during IV bolus administration of routine adult dose of nonionic iodinated IV contrast. CT chest was performed with contrast. No oral contrast. FINDINGS: CT CHEST: Bilateral pleural effusions are present, partly loculated and small to moderate in size on the left and small on the right. Calcified main and left anterior descending coronary arteries. The heart is large. No pericardial effusion. Soft tissue infiltration around the left lower lobe pulmonary artery measures 7 mm in thickness. Mediastinal nodes are small. Normal enhancement of intrathoracic vessels. Normal enhancement of cardiac chambers. Thyroid gland appears normal. No lower cervical or supraclavicular or axillary adenopathy. Right breast appears normal. Left breast is surgically absent. Lung window images show patchy atelectasis or infiltrate in the left lower lobe and in the inferior lingula. Patchy subpleural atelectasis in the right lung base. Mild posterior inferior left pleural thickening. Coronal and sagittal reformatted images confirm the findings. CT abdomen Precontrast CT images of the abdomen show no focal lesion of liver or spleen. The spleen is enlarged measuring 13.1 cm in AP dimension. No inflammation around the pancreas. Normal gallbladder with no calcified stones. Liver is normal in size and parenchymal appearance after IV contrast. Normal enhancement of liver and spleen and renal cortex. Normal enhancement of the pancreas. No calcified stones in the bile duct. Spleen, pancreas, and kidneys are unremarkable on the precontrast images. After IV contrast, normal enhancement of the liver and spleen. Small renal cysts bilaterally. No inflammation around the pancreas. No aortic aneurysm. Normal adrenal glands. Delayed postcontrast images show normal accumulation of contrast in the urinary collecting systems. No filling defects in the renal pelves. Positive contrast in the ureters. There is contrast in the dependent portion of the urinary bladder. CT pelvis No inflammation is seen around the cecum or terminal ileum or sigmoid colon. Appendix is is not seen. No stones are seen in the distal ureters or bladder on the precontrast images. Positive contrast on the delayed images in the bladder and distal ureters. Normal pelvic small bowel loops. No fracture or lytic lesion of the osseous structures. Postcontrast images show normal enhancement of the pelvic vessels. Uterus appears normal. Normal right ovary. Cyst in left ovary is seen which measures 2 cm in diameter. Prominent pelvic vessels. Correlate with sono findings. Coronal and sagittal reformatted images confirm the findings. Advanced degenerative changes of the lower lumbar spine the uterus is retroflexed and retroverted. IMPRESSION: Bilateral pleural effusions left greater than right. Cardiomegaly with mild coronary calcification. Mild splenomegaly. Otherwise no acute process in the abdomen or pelvis. This exam was performed according to our departmental dose-optimization program, which includes automated exposure control, adjustment of the mA and/or kV according to patient size and/or use of iterative reconstruction technique. Electronically signed by: Roney Ashley MD 02/25/2020 2:36 PM [facility]
== END ==
LOC: CT 08:41
PROVIDERS: ATTEND Internal Medicine Hematology & Oncology
DX: D61.818 Other pancytopenia (principal); J90 Pleural effusion, not elsewhere classified; I25.10 Atherosclerotic heart disease of native coronary artery without angina pectoris; I51.7 Cardiomegaly; R16.1 Splenomegaly, not elsewhere classified; R63.4 Abnormal weight loss; I63.9 Cerebral infarction, unspecified; C50.812 Malignant neoplasm of overlapping sites of left female breast

== ENCOUNTER → 2020-03-19 | Outpatient (CLI) | payer MEDICARE, BC | LOC: LAB.O 11:01 | PROVIDERS: ATTEND Psychiatry & Neurology Neurology | DX: I67.9 Cerebrovascular disease, unspecified (principal); F01.50 Vascular dementia, unspecified severity, without behavioral disturbance, psychotic disturbance, mood disturbance, and anxiety; D86.9 Sarcoidosis, unspecified; G37.9 Demyelinating disease of central nervous system, unspecified; R53.83 Other fatigue; M35.1 Other overlap syndromes; G35 Multiple sclerosis; G70.00 Myasthenia gravis without (acute) exacerbation; G04.89 Other myelitis; M54.81 Occipital neuralgia; H46.9 Unspecified optic neuritis; M15.0 Primary generalized (osteo)arthritis; M81.8 Other osteoporosis without current pathological fracture; R53.81 Other malaise; Z74.09 Other reduced mobility; M35.3 Polymyalgia rheumatica; M33.22 Polymyositis with myopathy; G61.81 Chronic inflammatory demyelinating polyneuritis; M54.12 Radiculopathy, cervical region; M54.16 Radiculopathy, lumbar region; I73.00 Raynaud's syndrome without gangrene; G25.89 Other specified extrapyramidal and movement disorders; M06.9 Rheumatoid arthritis, unspecified; M32.10 Systemic lupus erythematosus, organ or system involvement unspecified; M31.6 Other giant cell arteritis ==